=== PATIENT | female | born 2000 | race Caucasian/White ===

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

== ENCOUNTER → 2019-06-19 | Outpatient (CLI) | payer OTHER | END | disposition home or self-care (01) | LOC: LABWHC1 11:13 | PROVIDERS: ATTEND Obstetrics & Gynecology | DX: N92.6 Irregular menstruation, unspecified (principal) | CPT/HCPCS: 36415; 84702 ==

== ENCOUNTER → 2019-06-22 | Outpatient (CLI) | payer OTHER ==
--- NOTE | 2019-06-22 13:53 | US ---
EXAMINATION TYPE: US pelvic complete DATE OF EXAM: 06/22/2019 COMPARISON: US 2016 CLINICAL HISTORY: R10.2 pelvic pain. Intermittent left pelvic pain x 2 to 3 weeks, 1, para 1 TECHNIQUE: . Transabdominal sonographic images of the pelvis were acquired. Date of LMP: 1st week in May EXAM MEASUREMENTS: Uterus: 7.4 x 3.6 x 5.1 cm Endometrial Stripe: 0.3 cm Right Ovary: 2.3 x 1.6 x 1.4 cm Left Ovary: 2.4 x 1.8 x 1.6 cm 1. Uterus: anteverted, heterogeneous 2. Endometrium: appears wnl 3. Right Ovary: wnl 4. Left Ovary: wnl 5. Bilateral Adnexa: wnl 6. Posterior cul-de-sac: small amount of free fluid IMPRESSION: Trace amount of free fluid is likely physiologic in nature. Otherwise unremarkable pelvic ultrasound.
== END | disposition home or self-care (01) ==
LOC: RADUSWWP 12:26
PROVIDERS: ATTEND Obstetrics & Gynecology
DX: R10.2 Pelvic and perineal pain (principal)
CPT/HCPCS: 76856

== ENCOUNTER 2019-09-18 16:06 | Emergency (ER) | payer OTHER ==
[2019-09-18 18:37] LABS: Appearance,Urine Cloudy (Clear); Bilirubin,Urine Negative (Negative); Blood,Urine Negative (Negative); Color,Urine Yellow; Glucose,Urine (UA) Negative (Negative); Ketones,Urine Negative (Negative); Leukocyte Esterase,Urine Trace (Negative); Mucus,Urine Many /hpf; Nitrite,Urine Negative (Negative); PH, Urine 5.5 (5.0-8.0); Protein,Urine Negative (Negative); RBC,Urine 1 /hpf (0-5); Specific Gravity,Urine 1.022 (1.001-1.035); Squamous Epithelial Cell,Urine 10 /hpf (0-4); Urobilinogen,Urine <2.0 mg/dL (<2.0); WBC,Urine 5 /hpf (0-5)
--- NOTE | 2019-09-18 19:43 | US ---
EXAMINATION TYPE: Transabdominal DATE OF EXAM: 09/18/2019 7:25 PM COMPARISON: US CLINICAL HISTORY: pain. Pelvic pain x 2 weeks. . EXAM PERFORMED: Transvaginal (TV) and Transabdominal (TA) EXAM MEASUREMENTS: GESTATIONAL AGE / DATING Physician Established: Not yet established. Dates by LMP: (4 weeks/6 days) EDC: 05/21/2020 Dates by First Scan: This is first scan. Dates by Current Scan for: Possible gestational sac measures out of range. MATERNAL ANATOMY Uterus: 7.4 x 5.6 x 4.7 cm. Anteverted. Appears slightly heterogeneous. Anechoic fluid-appearing area slightly right in endometrium: 1.4 x 0.6 x 0.1 cm. Prominent vessels left adnexa measuring 0.72 cm. Right Ovary: 2.5 x 1.7 x 1.8 cm. Appears wnl. Left Ovary: 3.1 x 2.0 x 1.5 cm. Area of mixed echogenicity and peripheral vascularity seen: 1.4 x 1.6 x 1.1 cm. Post CDS / Adnexa: Fluid seen in CDS. Presence of free fluid: Yes in CDS. Presence of corpus luteal cyst: Area of mixed echogenicity and peripheral vascularity seen left ovary : 1.4 x 1.6 x 1.1 cm. Presence of subchorionic bleed: Not seen. GESTATION / SURVEY MSD: 0.27 cm. Measures OOR. IUP: Possible gestational sac only seen at this time. Date of LMP: 08/15/2019 Beta HcG (if available): Detected IMPRESSION: Possible small intrauterine gestational sac. Follow-up exam recommended in 14 days to confirm a livin g fetus of clinically indicated. No adnexal mass.
--- NOTE | 2019-09-18 19:50 | ED ---
Abdominal Pain HPI - General Chief Complaint: Abdominal Pain Stated Complaint: /cramping Time Seen by Provider: 09/18/19 18:24 Source: patient, RN notes reviewed Mode of arrival: ambulatory Limitations: no limitations - History of Present Illness Initial Comments: This a 19-year-old female presents emergency Department chief complaint of abdominal pain and early . Patient states she is A0 scheduled to see Dr. Lambert. Patient states that she had a vaginal delivery 14 months ago. Patient denies any current vaginal bleeding vaginal discharge. She states that she's had pain like this in the past with her other but states it seemed to worsen today. Patient has fever, chills, dysuria. She has some slight nausea no vomiting no diarrhea no constipation. - Related Data Home Medications Medication Instructions Recorded Confirmed Albuterol Sulfate [Proair Hfa] 2 puff INHALATION RT-Q6H PRN 01/18/18 07/10/18 Pnv No.95/Ferrous Fum/Folic AC 1 tab PO ONCE 04/20/18 07/10/18 [ Multivitamin Tablet] Previous Rx's Medication Instructions Recorded Ibuprofen [Motrin] 600 mg PO Q6HR PRN #30 tab 07/13/18 Allergies Allergy/AdvReac Type Severity Reaction Status Date / Time No Known Allergies Allergy Verified 07/10/18 16:18 Review of Systems ROS Statement: Those systems with pertinent positive or pertinent negative responses have been documented in the HPI. ROS Other: All systems not noted in ROS Statement are negative. Past Medical History Past Medical History: Asthma Additional Past Medical History / Comment(s): season allergies. OB history: This is her first . O+, abs neg, Rub Imm, Hep B neg, RPR NR, HIV NR, GBS neg. History of Any Multi-Drug Resistant Organisms: None Reported Past Surgical History: No Surgical Hx Reported Additional Past Surgical History / Comment(s): tongue clipped Past Anesthesia/Blood Transfusion Reactions: No Reported Reaction Past Psychological History: ADD/ADHD, Anxiety, Bipolar, Depression Smoking Status: Current every day smoker Past Alcohol Use History: None Reported Past Drug Use History: None Reported - Past Family History Mother Family Medical History: No Reported History General Exam Limitations: no limitations General appearance: alert, in no apparent distress Head exam: Present: atraumatic, normocephalic, normal inspection Neck exam: Present: normal inspection. Absent: tenderness, meningismus, lymphadenopathy Respiratory exam: Present: normal lung sounds bilaterally. Absent: respiratory distress, wheezes, rales, rhonchi, stridor Cardiovascular Exam: Present: regular rate, normal rhythm, normal heart sounds. Absent: systolic murmur, diastolic murmur, rubs, gallop, clicks GI/Abdominal exam: Present: soft, tenderness ( minimal left-sided), normal bowel sounds. Absent: distended, guarding, rebound, rigid Back exam: Absent: CVA tenderness (R), CVA tenderness (L) Course Vital Signs 09/18/19 09/18/19 16:20 18:24 Temperature 98.6 F Pulse Rate 90 Respiratory 16 20 Rate Blood Pressure 126/66 O2 Sat by Pulse 100 Oximetry Medical Decision Making - Medical Decision Making Ultrasound shows gestational sac, consistent left. Otherwise no acute abnormality's. Patient hCG is 733 correlates for early . Patient will be discharged in stable condition return parameters were discussed. - Lab Data Lab Results 09/18/19 09/18/19 09/18/19 Range/Units 18:28 18:28 18:48 HCG, Quant 733.2 mIU/mL Urine Color Yellow Urine Appearance Cloudy H (Clear) Urine pH 5.5 (5.0-8.0) Ur Specific [place] 1.022 (1.001-1.035) Urine Protein Negative (Negative) Urine Glucose (UA) Negative (Negative) Urine Ketones Negative (Negative) Urine Blood Negative (Negative) Urine Nitrite Negative (Negative) Urine Bilirubin Negative (Negative) Urine Urobilinogen <2.0 (<2.0) mg/dL Ur Leukocyte Esterase Trace H (Negative) Urine RBC 1 (0-5) /hpf Urine WBC 5 (0-5) /hpf Ur Squamous Epith Cells 10 H (0-4) /hpf Urine Mucus Many H (None) /hpf Urine HCG, Qual Detected (Not Detectd) Disposition Clinical Impression: Abdominal pain during Disposition: HOME SELF-CARE Condition: Stable Instructions (If sedation given, give patient instructions): Abdominal Pain in (ED) Additional Instructions: Please return to the Emergency Department if symptoms worsen or any other concerns. Is patient prescribed a controlled substance at d/c from ED?: No Referrals: None,Stated [Primary Care Provider] - 1-2 days Time of Disposition: 19:55
[2019-09-18 20:15] VITALS: BP 137/72; PULSE 88; RESP 18; TEMP 97.3
== END 2019-09-18 20:15 | disposition home or self-care (01) ==
LOC: EC 16:06
DX: O99.89 Other specified diseases and conditions complicating pregnancy, childbirth and the puerperium (principal); R10.2 Pelvic and perineal pain; R11.0 Nausea; O99.511 Diseases of the respiratory system complicating pregnancy, first trimester; J45.909 Unspecified asthma, uncomplicated; O99.331 Smoking (tobacco) complicating pregnancy, first trimester; F17.200 Nicotine dependence, unspecified, uncomplicated; Z79.899 Other long term (current) drug therapy; Z3A.01 Less than 8 weeks gestation of pregnancy
CPT/HCPCS: 36415; 76801; 76817; 81001; 81025; 84702; 99284

== ENCOUNTER 2019-10-30 17:19 | Emergency (ER) | payer OTHER ==
[2019-10-30 17:28] VITALS: RESP 18; TEMP 98.7
[2019-10-30 18:26] LABS: Basophils % (A) 0 %; Eosinophils # (A) 0.2 k/uL (0-0.7); Eosinophils % (A) 2 %; HCT 37.6 % (34.0-46.0); HGB 13.1 gm/dL (11.4-16.0); Lymphocytes % (A) 12 %; MCH 31.2 pg (25.0-35.0); MCHC 34.8 g/dL (31.0-37.0); MCV 89.7 fL (80.0-100.0); Mean Platelet Volume 7.2; Monocytes # (A) 0.2 k/uL (0-1.0); Monocytes % (A) 2 %; Neutrophils # (A) 7.4 k/uL (1.3-7.7); Neutrophils % (A) 83 %; Platelet Count 252 k/uL (150-450); RDW 12.4 % (11.5-15.5); WBC 8.9 k/uL (4.0-11.0)
[2019-10-30 18:33] LABS: Amorphous Sediment,Urine Rare /hpf; Appearance,Urine Turbid (Clear); Bacteria,Urine Few /hpf; Bilirubin,Urine Negative (Negative); Blood,Urine Negative (Negative); Color,Urine Yellow; Glucose,Urine (UA) Negative (Negative); Ketones,Urine Trace (Negative); Leukocyte Esterase,Urine Large (Negative); Mucus,Urine Many /hpf; Nitrite,Urine Negative (Negative); PH, Urine 6.5 (5.0-8.0); Protein,Urine 1+ (Negative); RBC,Urine 27 /hpf (0-5); Specific Gravity,Urine 1.027 (1.001-1.035); Squamous Epithelial Cell,Urine 67 /hpf (0-4); WBC,Urine 135 /hpf (0-5)
[2019-10-30 18:39] VITALS: BP 104/59; PULSE 76
[2019-10-30 19:05] LABS: ALT 10 U/L (4-34); AST 21 U/L (14-36); African American GFR (CKD) >90 (>60 ml/min/1.73 sqM); Albumin 4.4 g/dL (3.5-5.0); Alkaline Phosphatase 43 U/L (38-126); Anion Gap 8 mmol/L; Blood Urea Nitrogen 9 mg/dL (7-17); Calcium 9.3 mg/dL (8.4-10.2); Carbon Dioxide 21 mmol/L (22-30); Chloride 107 mmol/L (98-107); Glucose 107 mg/dL (74-99); Non-African American GFR(CKD) >90 (>60 ml/min/1.73 sqM); Potassium 3.5 mmol/L (3.5-5.1); Sodium 136 mmol/L (137-145); Total Bilirubin 0.8 mg/dL (0.2-1.3); Total Protein 6.9 g/dL (6.3-8.2)
--- NOTE | 2019-10-30 19:16 | ED ---
Abdominal Pain HPI - General Chief Complaint: Abdominal Pain Stated Complaint: 10-12 wks preg/cramping & blood in urine Time Seen by Provider: 10/30/19 17:30 Source: patient Mode of arrival: ambulatory Limitations: no limitations - History of Present Illness Initial Comments: Patient is a 19-year-old female presenting to the emergency Department with co mplaints of abdominal cramping and bleeding for 2 days. Patient is currently 10 weeks . . Patient's [employer] is Dr. Lambert. She has not yet seen Dr. Lambert. She states that she is been having cramping throughout this entire part C but the last 2 days it has been much worse. She states that she did fall 2 days ago after slipping on some ice and landed mostly on her hip area. She b elieves her symptoms started shortly after this. She denies any fever, chills, cough. She denies any nausea or vomiting. She denies any vaginal discharge. She has no other complaints at this time. Upon arrival to ER, her vital signs are stable. - Related Data Home Medications Medication Instructions Recorded Confirmed Albuterol Sulfate [Proair Hfa] 2 puff INHALATION RT-Q6H PRN 01/18/18 07/10/18 Pnv No.95/Ferrous Fum/Folic AC 1 tab PO ONCE 04/20/18 07/10/18 [ Multivitamin Tablet] Previous Rx's Medication Instructions Recorded Ibuprofen [Motrin] 600 mg PO Q6HR PRN #30 tab 07/13/18 Pnv No.95/Ferrous Fum/Folic AC 1 each PO DAILY #30 tablet 09/18/19 [ Multivitamin Tablet] Cephalexin [Keflex] 500 mg PO BID 5 Days #10 cap 10/30/19 Allergies Allergy/AdvReac Type Severity Reaction Status Date / Time No Known Allergies Allergy Verified 10/30/19 17:28 Review of Systems ROS Statement: Those systems with pertinent positive or pertinent negative responses have been documented in the HPI. ROS Other: All systems not noted in ROS Statement are negative. Past Medical History Past Medical History: Asthma Additional Past Medical History / Comment(s): season allergies. OB history: This is her first . O+, abs neg, Rub Imm, Hep B neg, RPR NR, HIV NR, GBS neg. History of Any Multi-Drug Resistant Organisms: None Reported Past Surgical History: No Surgical Hx Reported Additional Past Surgical History / Comment(s): tongue clipped Past Anesthesia/Blood Transfusion Reactions: No Reported Reaction Past Psychological History: ADD/ADHD, Anxiety, Bipolar, Depression Smoking Status: Current every day smoker Past Alcohol Use History: None Reported Past Drug Use History: None Reported - Past Family History Mother Family Medical History: No Reported History General Exam - General Exam Comments Initial Comments: GENERAL: Well-appearing, well-nourished and in no acute distress. HEAD: Atraumatic, normocephalic. EYES: Pupils equal round and reactive to light, extraocular movements intact, sclera anicteric, conjunctiva are normal. ENT: TMs normal, nares patent, oropharynx clear without exudates. Moist mucous membranes. NECK: Normal range of motion, supple without lymphadenopathy or JVD. LUNGS: Breath sounds clear to auscultation bilaterally and equal. No wheezes rales or rhonchi. HEART: Regular rate and rhythm without murmurs, rubs or gallops. ABDOMEN: Soft, nontender, normoactive bowel sounds. No guarding, no rebound. No masses appreciated. EXTREMITIES: Normal range of motion, no pitting or edema. No clubbing or cyanosis. NEUROLOGICAL: Normal speech, normal gait. PSYCH: Normal mood, normal affect. SKIN: Warm, Dry, normal turgor, no rashes or lesions noted. Limitations: no limitations External exam: Present: normal external exam Speculum exam: Present: vaginal discharge. Absent: vaginal bleeding, foreign body By manual exam: Present: normal by manual exam Course Vital Signs 10/30/19 10/30/19 17:25 18:38 Temperature 98.7 F Pulse Rate 94 76 Respiratory 18 18 Rate Blood Pressure 103/65 104/59 O2 Sat by Pulse 100 Oximetry Medical Decision Making - Medical Decision Making Patient is 19-year-old female presenting with abdominal cramping, bleeding 2 days. 10 weeks . G2, P1. Dr. Lambert's [employer]. Vitals are stable. Pelvic exam shows no acute abnormalities, very mild vaginal discharge. Lab work is unremarkable. HCG [place] is 151,000. Urine is contaminated but does show some bacteria. Trichomonas is negative. Vaginal culture and gonorrhea and chlamydia are pending at this time. Blood type is O+. Ultrasound reveals a viable IUP approximately 10 weeks. Small subchorionic hemorrhage. No other abnormal findings. I discussed with patient that she'll be treated for UTI. She will also follow up with [employer]. Patient given first dose of Keflex here. She is in agreement with this plan of care. Return parameters were discussed with the patient and she verbalized understanding. - Lab Data Result diagrams: 10/30/19 18:13 10/30/19 18:13 Lab Results 10/30/19 10/30/19 10/30/19 Range/Units 18:13 18:13 18:13 WBC 8.9 (4.0-11.0) k/uL RBC 4.20 (3.80-5.40) m/uL Hgb 13.1 (11.4-16.0) gm/dL Hct 37.6 (34.0-46.0) % MCV 89.7 (80.0-100.0) fL MCH 31.2 (25.0-35.0) pg MCHC 34.8 (31.0-37.0) g/dL RDW 12.4 (11.5-15.5) % Plt Count 252 (150-450) k/uL Neutrophils % 83 % Lymphocytes % 12 % Monocytes % 2 % Eosinophils % 2 % Basophils % 0 % Neutrophils # 7.4 (1.3-7.7) k/uL Lymphocytes # 1.0 (1.0-4.8) k/uL Monocytes # 0.2 (0-1.0) k/uL Eosinophils # 0.2 (0-0.7) k/uL Basophils # 0.0 (0-0.2) k/uL Sodium 136 L (137-145) mmol/L Potassium 3.5 (3.5-5.1) mmol/L Chloride 107 (98-107) mmol/L Carbon Dioxide 21 L (22-30) mmol/L Anion Gap 8 mmol/L BUN 9 (7-17) mg/dL Creatinine 0.46 L (0.52-1.04) mg/dL Est GFR (CKD-EPI)AfAm >90 (>60 ml/min/1.73 sqM) Est GFR (CKD-EPI)NonAf >90 (>60 ml/min/1.73 sqM) Glucose 107 H (74-99) mg/dL Calcium 9.3 (8.4-10.2) mg/dL Total Bilirubin 0.8 (0.2-1.3) mg/dL AST 21 (14-36) U/L ALT 10 (4-34) U/L Alkaline Phosphatase 43 (38-126) U/L Total Protein 6.9 (6.3-8.2) g/dL Albumin 4.4 (3.5-5.0) g/dL HCG, Quant 102361.0 mIU/mL Urine Color Yellow Urine Appearance Turbid H (Clear) Urine pH 6.5 (5.0-8.0) Ur Specific [place] 1.027 (1.001-1.035) Urine Protein 1+ H (Negative) Urine Glucose (UA) Negative (Negative) Urine Ketones Trace H (Negative) Urine Blood Negative (Negative) Urine Nitrite Negative (Negative) Urine Bilirubin Negative (Negative) Urine Urobilinogen 2.0 (<2.0) mg/dL Ur Leukocyte Esterase Large H (Negative) Urine RBC 27 H (0-5) /hpf Urine WBC 135 H (0-5) /hpf Ur Squamous Epith Cells 67 H (0-4) /hpf Amorphous Sediment Rare H (None) /hpf Urine Bacteria Few H (None) /hpf Urine Mucus Many H (None) /hpf Trichomonas Ag (Rapid) (Negative) Blood Type Blood Type Recheck Bld Type Recheck Status 10/30/19 10/30/19 Range/Units 18:13 18:13 WBC (4.0-11.0) k/uL RBC (3.80-5.40) m/uL Hgb (11.4-16.0) gm/dL Hct (34.0-46.0) % MCV (80.0-100.0) fL MCH (25.0-35.0) pg MCHC (31.0-37.0) g/dL RDW (11.5-15.5) % Plt Count (150-450) k/uL Neutrophils % % Lymphocytes % % Monocytes % % Eosinophils % % Basophils % % Neutrophils # (1.3-7.7) k/uL Lymphocytes # (1.0-4.8) k/uL Monocytes # (0-1.0) k/uL Eosinophils # (0-0.7) k/uL Basophils # (0-0.2) k/uL Sodium (137-145) mmol/L Potassium (3.5-5.1) mmol/L Chloride (98-107) mmol/L Carbon Dioxide (22-30) mmol/L Anion Gap mmol/L BUN (7-17) mg/dL Creatinine (0.52-1.04) mg/dL Est GFR (CKD-EPI)AfAm (>60 ml/min/1.73 sqM) Est GFR (CKD-EPI)NonAf (>60 ml/min/1.73 sqM) Glucose (74-99) mg/dL Calcium (8.4-10.2) mg/dL Total Bilirubin (0.2-1.3) mg/dL AST (14-36) U/L ALT (4-34) U/L Alkaline Phosphatase (38-126) U/L Total Protein (6.3-8.2) g/dL Albumin (3.5-5.0) g/dL HCG, Quant mIU/mL Urine Color Urine Appearance (Clear) Urine pH (5.0-8.0) Ur Specific [place] (1.001-1.035) Urine Protein (Negative) Urine Glucose (UA) (Negative) Urine Ketones (Negative) Urine Blood (Negative) Urine Nitrite (Negative) Urine Bilirubin (Negative) Urine Urobilinogen (<2.0) mg/dL Ur Leukocyte Esterase (Negative) Urine RBC (0-5) /hpf Urine WBC (0-5) /hpf Ur Squamous Epith Cells (0-4) /hpf Amorphous Sediment (None) /hpf Urine Bacteria (None) /hpf Urine Mucus (None) /hpf Trichomonas Ag (Rapid) Negative (Negative) Blood Type O Positive Blood Type Recheck O Pos Bld Type Recheck Status No Disposition Clinical Impression: UTI (urinary tract infection) during , Abdominal cramping Disposition: HOME SELF-CARE Condition: Stable Instructions (If sedation given, give patient instructions): Urinary Tract Infection in (ED) Additional Instructions: Please return to the Emergency Department if symptoms worsen or any other concerns. May take Tylenol as needed for pain. Take antibiotics as prescribed. Follow-up with [employer] as discussed. Prescriptions: Cephalexin [Keflex] 500 mg PO BID 5 Days #10 cap Is patient prescribed a controlled substance at d/c from ED?: No Referrals: None,Stated [Primary Care Provider] - 1-2 days
--- NOTE | 2019-10-30 19:41 | US ---
EXAMINATION TYPE: Transabdominal DATE OF EXAM: 10/30/2019 7:20 PM COMPARISON: US dated 09/18/2019 CLINICAL HISTORY: pain, bleeding. Pain, bleeding x 2 days. Hx ovarian cyst. . EXAM PERFORMED: Transabdominal (TA) EXAM MEASUREMENTS: GESTATIONAL AGE / DATING Physician Established: Not yet established Dates by LMP: (10 weeks/6 days) EDC: 05/21/2020 Dates by First Scan: No dates for first scan. Dates by Current Scan for: (10 weeks/6 days) EDC: 05/21/2020 MATERNAL ANATOMY Uterus: 10.1 x 6.8 x 6.9 cm. Hypoechoic area seen adjacent to the gestational sac: 2.0 x 1.1 x 0.6 cm (mentioned below). Right Ovary: 1.9 x 1.4 x 1.6 cm. Left Ovary: 2.2 x 1.8 x 1.2 cm. Area of mixed echogenicity and peripheral vascularity seen measurin.5 x 1.2 x 1.2 centimeters similar to prior exam Post CDS / Adnexa: Appear to be wnl Presence of free fluid: None seen. Presence of subchorionic bleed: Hypoechoic area seen adjacent to the gestational sac: 2.0 x 1.1 x 0.6 cm. GESTATION / SURVEY CRL: 3.94 cm. (10 weeks/6 days) Yolk Sac (normal less than 6mm): 5.3 mm. Heart Rate: 162 bpm Rhythm: Normal IUP: Viable IUP Nuchal Translucency 10-14wks (normal less than 3mm): 2.5 mm. Date of LMP: 08/15/2019 Beta HcG (if available): Not available. IMPRESSION: Single viable intrauterine corresponding to ultrasound age of 10 weeks 6 days by today's ex am with an estimated date of delivery May 21, 2020 by today's exam. Small subchorionic hemorrhage is identified.
[2019-10-30] MEDS ORDERED: CEPHALEXIN 500 MG CAP PO STA (19:47)
[2019-10-31 15:13] LABS: C. trachomatis,PCR Negative (Neg,Equiv); Chlamydia trachomatis Source Cervix; N. gonorrhoeae,PCR Negative (Neg,Equiv); Neisseria Source Cervix
== END 2019-10-30 19:54 | disposition home or self-care (01) ==
LOC: EC 17:19
DX: O23.41 Unspecified infection of urinary tract in pregnancy, first trimester (principal); O99.89 Other specified diseases and conditions complicating pregnancy, childbirth and the puerperium; N89.8 Other specified noninflammatory disorders of vagina; R82.71 Bacteriuria; O20.8 Other hemorrhage in early pregnancy; Z67.40 Type O blood, Rh positive; O99.511 Diseases of the respiratory system complicating pregnancy, first trimester; J45.909 Unspecified asthma, uncomplicated; O99.331 Smoking (tobacco) complicating pregnancy, first trimester; F17.200 Nicotine dependence, unspecified, uncomplicated; Z79.899 Other long term (current) drug therapy; Z3A.10 10 weeks gestation of pregnancy; W00.0XXA Fall on same level due to ice and snow, initial encounter
CPT/HCPCS: 36415; 76801; 76813; 80053; 81001; 84702; 85025; 86900; 86901; 87070; 87086; 87491; 87591; 87808; 99284

== ENCOUNTER 2019-12-05 02:47 | Emergency (ER) | payer OTHER ==
[2019-12-05 02:53] VITALS: TEMP 98
[2019-12-05] MEDS ORDERED: SODIUM CHLORIDE 0.9% 500 ML 500 ML IV STA (02:56)
[2019-12-05] MEDS ORDERED: ACETAMINOPHEN TAB 500 MG TAB PO STA (03:12)
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
[2019-12-05 03:32] LABS: Basophils % (A) 0 %; Eosinophils # (A) 0.2 k/uL (0-0.7); Eosinophils % (A) 1 %; HCT 37.9 % (34.0-46.0); HGB 13.3 gm/dL (11.4-16.0); Lymphocytes # (A) 1.1 k/uL (1.0-4.8); Lymphocytes % (A) 6 %; MCH 31.8 pg (25.0-35.0); MCV 91.1 fL (80.0-100.0); Mean Platelet Volume 7.3; Monocytes # (A) 0.4 k/uL (0-1.0); Monocytes % (A) 2 %; Neutrophils # (A) 15.4 k/uL (1.3-7.7); Neutrophils % (A) 90 %; Platelet Count 273 k/uL (150-450); RBC 4.16 m/uL (3.80-5.40); RDW 13.1 % (11.5-15.5); WBC 17.2 k/uL (4.0-11.0)
[2019-12-05 03:42] LABS: ALT 8 U/L (4-34); AST 18 U/L (14-36); African American GFR (CKD) >90 (>60 ml/min/1.73 sqM); Albumin 4.1 g/dL (3.5-5.0); Alkaline Phosphatase 61 U/L (38-126); Amylase 55 U/L (30-110); Anion Gap 8 mmol/L; Blood Urea Nitrogen 5 mg/dL (7-17); Calcium 9.3 mg/dL (8.4-10.2); Carbon Dioxide 21 mmol/L (22-30); Chloride 105 mmol/L (98-107); Glucose 82 mg/dL (74-99); Non-African American GFR(CKD) >90 (>60 ml/min/1.73 sqM); Potassium 3.7 mmol/L (3.5-5.1); Sodium 134 mmol/L (137-145); Total Bilirubin 0.5 mg/dL (0.2-1.3); Total Protein 6.8 g/dL (6.3-8.2)
[2019-12-05 03:48] LABS: INR 0.9 (<1.2); Prothrombin Time 9.9 sec (9.0-12.0)
[2019-12-05 03:54] LABS: Partial Thromboplastin Time 21.1 sec (22.0-30.0)
[2019-12-05 04:07] LABS: Appearance,Urine Cloudy (Clear); Bacteria,Urine Rare /hpf; Bilirubin,Urine Negative (Negative); Blood,Urine Negative (Negative); Color,Urine Yellow; Glucose,Urine (UA) Negative (Negative); Ketones,Urine 1+ (Negative); Leukocyte Esterase,Urine Small (Negative); Mucus,Urine Many /hpf; Nitrite,Urine Negative (Negative); PH, Urine 7.5 (5.0-8.0); Protein,Urine 3+ (Negative); RBC,Urine 2 /hpf (0-5); Specific Gravity,Urine 1.014 (1.001-1.035); Squamous Epithelial Cell,Urine 5 /hpf (0-4); Urobilinogen,Urine <2.0 mg/dL (<2.0); WBC,Urine 25 /hpf (0-5)
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
[2019-12-05 05:04] VITALS: BP 99/62; PULSE 96; RESP 16
== END 2019-12-05 05:16 | disposition home or self-care (01) ==
LOC: EC 02:47
DX: O9A.212 Injury, poisoning and certain other consequences of external causes complicating pregnancy, second trimester (principal); S30.1XXA Contusion of abdominal wall, initial encounter; O99.89 Other specified diseases and conditions complicating pregnancy, childbirth and the puerperium; R82.71 Bacteriuria; O99.512 Diseases of the respiratory system complicating pregnancy, second trimester; J45.909 Unspecified asthma, uncomplicated; O99.332 Smoking (tobacco) complicating pregnancy, second trimester; F17.200 Nicotine dependence, unspecified, uncomplicated; Z3A.16 16 weeks gestation of pregnancy; Y04.8XXA Assault by other bodily force, initial encounter
CPT/HCPCS: 36415; 76700; 76815; 80053; 81001; 82150; 83690; 85025; 85610; 85730; 86900; 86901; 87086; 99284

== ENCOUNTER 2020-02-25 20:10 | Outpatient (CLI) | payer OTHER ==
[2020-02-25 22:57] VITALS: BP 118/56; PULSE 90; RESP 16; TEMP 97.4
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
== END 2020-02-25 21:41 | disposition home or self-care (01) ==
LOC: FBPOP 20:10
PROVIDERS: ATTEND Obstetrics & Gynecology
DX: O99.89 Other specified diseases and conditions complicating pregnancy, childbirth and the puerperium (principal); O9A.212 Injury, poisoning and certain other consequences of external causes complicating pregnancy, second trimester; R52 Pain, unspecified; Z3A.27 27 weeks gestation of pregnancy
CPT/HCPCS: 99213

== ENCOUNTER 2020-04-06 23:43 | Outpatient (CLI) | payer OTHER ==
[2020-04-07 00:08] LABS: Appearance,Urine Cloudy (Clear); Bilirubin,Urine Negative (Negative); Blood,Urine Negative (Negative); Color,Urine Yellow; Glucose,Urine (UA) Trace (Negative); Ketones,Urine Trace (Negative); Leukocyte Esterase,Urine Moderate (Negative); Mucus,Urine Many /hpf; Nitrite,Urine Negative (Negative); Protein,Urine 1+ (Negative); RBC,Urine 2 /hpf (0-5); Specific Gravity,Urine 1.026 (1.001-1.035); Squamous Epithelial Cell,Urine 8 /hpf (0-4); WBC,Urine 22 /hpf (0-5)
[2020-04-07] MEDS: LACTATED RINGERS 1,000 ML IV SCH ×2 (01:40→03:02)
[2020-04-07 02:20] VITALS: RESP 16
[2020-04-07 02:58] VITALS: BP 116/66; PULSE 88; TEMP 97.2
--- NOTE | 2020-04-07 08:00 | P.MSEPDOC ---
Presenting Problems - Arrival Data Date of Arrival on Unit: 04/07/20 Time of Arrival on Unit: 23:43 Mode of Transport: Wheelchair - Complaint OB-Reason for Admission/Chief Complaint: Pain Comment: Pelvic/vaginal pain Medical History - Information : 2 Para: 1 Term: 1 : 0 Abortions: Spontaneous or Elective: 0 Number of Living Children: 1 - Gestational Age Gestational Age by MARIAN (wks/days): 33 Weeks and 5 Days - History Complications: Smoker, Hx. Substance Abuse Comment: marijuana use Review of Systems - Review of Systems Constitutional: No problems Breast: No problems ENT: No problems Cardiovascular: No problems Respiratory: No problems Gastrointestinal: No problems Genitourinary: No problems Musculoskeletal: No problems Neurological: No problems Skin: No problems Vital Signs - Temperature Temperature: 97.2 F Temperature Source: Temporal Artery Scan - Pulse Right Pulse Rate: 88 Pulse Assessment Method: Automatic Cuff - Respirations Respiratory Rate: 16 Oxygen Delivery Method: Room Air O2 Sat by Pulse Oximetry: 100 - Blood Pressure Right Arm Blood Pressure: 116/66 Blood Pressure Mean: 82 Blood Pressure Source: Automatic Cuff Medical Screen Scoring (Pre) - Cervical Exam Dilation: Exam Deferred Effacement: Exam Deferred Membranes: Intact - Uterine Contractions Frequency: > 5 minutes apart = 1 Duration: > 40 seconds = 2 Intensity: N/A - Maternal Vital Signs Maternal Temperature: N/A Maternal Blood Pressure: N/A Signs of Preeclampsia: N/A Maternal Respirations: N/A - Maternal Trauma Maternal Trauma: N/A - Assessment - Baby A Baseline FHR: 125 Heart Rate - NICHD Category: Category I (Normal) = 0 NST: Reactive Position: N/A Station: N/A - Total Score - Baby A Total Score - Baby A: 3 - Total Score - Baby B Total Score - Baby B: 3 - Total Score - Baby C Total Score - Baby C: 3 - Level of Risk - Baby A Level of Risk - Baby A: Low (0-5) - Level of Risk - Baby B Level of Risk - Baby B: Low (0-5) - Level of Risk - Baby C Level of Risk - Baby C: Low (0-5) - Pain Assessment Pain Location and Character: Pelvic Pain Scale Used: Numeric (1 - 10) Pain Intensity: 6 Pain Management Goal: 3 Pain Description: *Acute, Stabbing Pain Frequency: Frequent Pain Aggravating Factors: Activity, Sitting Non-Pharmacological Interventions: Darkened Room, Distraction, Ice Physician Notification (Pre) - Physician Notified Physician Notified Date: 04/07/20 Physician Notified Time: 00:23 New Order Received: Yes - Notification Comment Comment: Perform cervical exam & obtain FFN. If patient is dilated, then send FFN. Order a culture/sensitivity for urine. Medical Screen Scoring (Post) - Cervical Exam Dilation: 1-3 cm = 1 Membranes: Intact - Uterine Contractions Frequency: N/A Duration: N/A Intensity: N/A - Maternal Vital Signs Maternal Temperature: N/A Maternal Blood Pressure: N/A Signs of Preeclampsia: N/A Maternal Respirations: N/A - Pain Assessment Pain Location and Character: Pelvic Pain Scale Used: Numeric (1 - 10) Pain Intensity: 5 Pain Management Goal: 3 Pain Description: *Acute Pain Frequency: Intermittent Non-Pharmacological Interventions: Darkened Room, Distraction, Ice, Inactivity - Maternal Trauma Maternal Trauma: N/A - Assessment - Baby A Heart Rate: 125 Heart Rate - NICHD Category: Category I (Normal) = 0 NST: Reactive Position: N/A Station: N/A - Total Score Total Score - Baby A: 1 Total Score - Baby B: 1 Total Score - Baby C: 1 - Post Treatment Level of Risk Post Treatment Level of Risk - Baby A: Low (0-5) Post Treatment Level of Risk - Baby B: Low (0-5) Post Treatment Level of Risk - Baby C: Low (0-5) Physician Notification (Post) - Physician Notified Physician Notified Date: 04/07/20 Physician Notified Time: 06:08 Physician/Practitioner Notified:: Dr Hall New Order Received: Yes - Notification Comment Comment: Administer 500cc bolus, keep pt in triage until Dr. Hall evaluates in AM when he comes in, if FFN is positive administer celestone injection. Disposition - Disposition OB Disposition: Discharge to home Discharge Date: 04/07/20 Discharge Time: 06:20 I agree with the RN Medical Screening Exam: Yes Risk & Benefit of care provided described in d/c instruction: Yes Diagnosis: FALSE LABOR BEFORE 37 COMPLETED WEEKS OF GEST, THIRD TRI (Cx is 1 and thick. No regular ctx. FFN negative. No evidence of PTL. Will f/u UA and office this week. )
== END 2020-04-07 06:20 | disposition home or self-care (01) ==
LOC: FBPOP 23:43
PROVIDERS: ATTEND Obstetrics & Gynecology
DX: O47.03 False labor before 37 completed weeks of gestation, third trimester (principal); Z3A.33 33 weeks gestation of pregnancy
CPT/HCPCS: 59025; 96360; 96367; 82731; 81001; 87086; G0463; 99213

== ENCOUNTER 2020-04-09 16:49 | Outpatient (CLI) | payer OTHER ==
[2020-04-09 19:04] VITALS: BP 99/54; PULSE 104; RESP 16; TEMP 98.6
--- NOTE | 2020-04-09 20:45 | P.MSEPDOC ---
Presenting Problems - Arrival Data Date of Arrival on Unit: 04/09/20 Time of Arrival on Unit: 16:50 Mode of Transport: Ambulatory - Complaint OB-Reason for Admission/Chief Complaint: Other Comment: pt arrived c/o loosing her mucus plug and mild cramping and not sure if her water broke Medical History - Information : 2 Para: 1 Term: 1 : 0 Abortions: Spontaneous or Elective: 0 Number of Living Children: 1 - Gestational Age Gestational Age by MARIAN (wks/days): 34 Weeks and 0 Days Review of Systems - Review of Systems Constitutional: No problems Breast: No problems ENT: No problems Cardiovascular: No problems Respiratory: No problems Gastrointestinal: No problems Genitourinary: No problems Musculoskeletal: No problems Neurological: No problems Skin: No problems Vital Signs - Temperature Temperature: 98.6 F Temperature Source: Oral - Pulse Right Brachial Pulse Rate: 104 Pulse Assessment Method: Automatic Cuff - Respirations Respiratory Rate: 16 Oxygen Delivery Method: Room Air O2 Sat by Pulse Oximetry: 100 - Blood Pressure Right Arm Blood Pressure: 99/54 Blood Pressure Mean: 69 Blood Pressure Source: Automatic Cuff Medical Screen Scoring (Pre) - Cervical Exam Dilation: 1-3 cm = 1 Membranes: Intact - Uterine Contractions Frequency: > 5 minutes apart = 1 Duration: N/A Intensity: N/A - Maternal Vital Signs Maternal Temperature: N/A Maternal Blood Pressure: N/A Signs of Preeclampsia: N/A Maternal Respirations: N/A - Maternal Trauma Maternal Trauma: N/A - Assessment - Baby A Baseline FHR: 140 Heart Rate - NICHD Category: Category I (Normal) = 0 NST: Reactive Position: N/A Station: N/A - Total Score - Baby A Total Score - Baby A: 2 - Total Score - Baby B Total Score - Baby B: 2 - Total Score - Baby C Total Score - Baby C: 2 - Level of Risk - Baby A Level of Risk - Baby A: Low (0-5) - Level of Risk - Baby B Level of Risk - Baby B: Low (0-5) - Level of Risk - Baby C Level of Risk - Baby C: Low (0-5) Physician Notification (Pre) - Physician Notified Physician Notified Date: 04/09/20 Physician Notified Time: 18:50 New Order Received: Yes - Notification Comment Comment: negative amnsiure ervix 1 cm and thick reactive nst. may discharge to home with instructions Disposition - Disposition OB Disposition: Discharge to home Discharge Date: 04/09/20 Discharge Time: 18:51 I agree with the RN Medical Screening Exam: Yes Risk & Benefit of care provided described in d/c instruction: Yes Diagnosis: FALSE LABOR BEFORE 37 COMPLETED WEEKS OF GEST, THIRD TRI
== END 2020-04-09 18:51 | disposition home or self-care (01) ==
LOC: FBPOP 16:49
PROVIDERS: ATTEND Obstetrics & Gynecology
DX: O47.03 False labor before 37 completed weeks of gestation, third trimester (principal); Z3A.34 34 weeks gestation of pregnancy
CPT/HCPCS: 59025; G0463; 99213

== ENCOUNTER 2020-04-17 08:10 | Inpatient (IN) | payer OTHER ==
[2020-04-17] MEDS: LACTATED RINGERS 1,000 ML IV SCH ×2 (08:47→18:21)
[2020-04-17] MEDS ORDERED: BETAMET ACET-BETAMETH SOD PHOS 6 MG/ML MDV IM SCH ×2 (10:00→22:15)
--- NOTE | 2020-04-17 10:25 | US ---
EXAMINATION TYPE: US OB >= 14 wk fetus DATE OF EXAM: 04/17/2020 COMPARISON: CLINICAL HISTORY: rule out abruptionSpotting TECHNIQUE: Transabdominal (TA) GESTATIONAL AGE / DATING Physician Established: (35 weeks/1 days) EDC: 05/21/20 Dates by Current Scan: (33 weeks/3 days) EDC: 06/02/20 Beta HCG (if available): Not available at this time SURVEY IUP: Single PLACENTA: Anterior PREVIA: No Previa EDGARDO: 24.9 cm Polyhydramnios CERVICAL LENGTH (transabdominal: norm > 3.0cm): 4.0 cm BIOMETRY PRESENTATION: Vertex BPD: 8.3 cm 33 weeks / 2 days HC: 30.4 cm 33 weeks / 6 days AC: 30.0 cm 34 weeks / 0 days FL: 6.2 cm 32 weeks / 1 days ESTIMATED WEIGHT IN GRAMS: 2171 grams ESTIMATED WEIGHT IN LBS/OZ: 4 lbs. 13 oz. WEIGHT PERCENTAGE BASED ON ESTABLISHED DATES: 9% HC/AC: 1.0 Normal FL/AC: 75% Normal HEART RATE: 129 bpm RHYTHM: Normal Internal echoes seen within amniotic fluid. IMPRESSION: Single viable intrauterine .
[2020-04-17 13:59] LABS: Basophils % (A) 0 %; Eosinophils # (A) 0.2 k/uL (0-0.7); Eosinophils % (A) 2 %; HCT 37.5 % (34.0-46.0); HGB 12.4 gm/dL (11.4-16.0); Lymphocytes # (A) 1.5 k/uL (1.0-4.8); Lymphocytes % (A) 14 %; MCH 31.2 pg (25.0-35.0); MCHC 33.1 g/dL (31.0-37.0); MCV 94.5 fL (80.0-100.0); Mean Platelet Volume 9.9; Monocytes # (A) 0.7 k/uL (0-1.0); Monocytes % (A) 6 %; Neutrophils # (A) 8.9 k/uL (1.3-7.7); Neutrophils % (A) 78 %; Platelet Count 185 k/uL (150-450); RBC 3.96 m/uL (3.80-5.40); RDW 13.7 % (11.5-15.5); WBC 11.4 k/uL (4.0-11.0)
--- NOTE | 2020-04-17 17:03 | P.HPOB ---
History of Present Illness H&P Date: 04/17/20 Chief Complaint: Vaginal bleeding 19-year-old she the to P1 presents at 35 weeks and 1 day complaining of active bleeding. This morning she thought her water broke because there was wetness on her underwear and she was jerking fluid into the toilet. When she looked down she realized it was blood. When she presented to the hospital she was having some cramping on the monitor and feeling some pain on the left side. She did have some blood on her pad and her cervix was dilated 2 cm, 60% effaced, and -2 station. heart tones 135 with moderate variability and reactive. She was given IV fluids her pain resolved. Her bleeding has slowed. Ultrasound showed vertex infant in the 9th percentile with normal EDGARDO. There was nothing seen on her placenta but there were internal echoes and the fluid. This case was discussed with Dr. Katie Lopez, maternal- medicine at [facility] in [place]. He advised that she should at least stay for 24 hours and get steroids for the risk of delivery. If her pain increases or the bleeding increases or there is any signs of compromise she should be moved towards delivery. Review of Systems All systems: negative Constitutional: Denies chills, Denies fever Eyes: denies blurred vision, denies pain Ears, nose, mouth and throat: Denies headache, Denies sore throat Cardiovascular: Denies chest pain, Denies shortness of breath Respiratory: Denies cough Gastrointestinal: Denies abdominal pain, Denies diarrhea, Denies nausea, Denies vomiting Genitourinary: Denies dysuria, Denies hematuria Musculoskeletal: Denies myalgias Integumentary: Denies pruritus, Denies rash Neurological: Denies numbness, Denies weakness Psychiatric: Denies anxiety, Denies depression Endocrine: Denies fatigue, Denies weight change Past Medical History Past Medical History: Asthma Additional Past Medical History / Comment(s): season allergies. OB history: First was a vaginal delivery. This is her second . O+, abs neg, Rub Imm, Hep B neg, RPR NR, HIV NR, GBS neg. History of Any Multi-Drug Resistant Organisms: None Reported Past Surgical History: No Surgical Hx Reported Additional Past Surgical History / Comment(s): tongue clipped Past Anesthesia/Blood Transfusion Reactions: No Reported Reaction Past Psychological History: ADD/ADHD, Anxiety, Bipolar, Depression Smoking Status: Current every day smoker Past Alcohol Use History: None Reported Past Drug Use History: None Reported - Past Family History Mother Family Medical History: No Reported History Medications and Allergies Home Medications Medication Instructions Recorded Confirmed Type No Known Home Medications 04/17/20 04/17/20 History Allergies Allergy/AdvReac Type Severity Reaction Status Date / Time No Known Allergies Allergy Verified 04/17/20 08:23 Exam Osteopathic Statement: *. No significant issues noted on an osteopathic stru ctural exam other than those noted in the History and Physical/Consult. Vital Signs Temp Pulse Resp BP Pulse Ox 04/17/20 14:58 96.7 F L 82 18 115/69 97 04/17/20 09:23 96.7 F L 82 18 115/69 97 Intake and Output 04/17/20 04/17/20 04/17/20 06:59 14:59 22:59 Intake Total 1000 Balance 1000 Intake: IV 1000 Other: # Voids 3 Weight 58.513 kg Heart: Regular rate and rhythm Lungs: Clear to auscultation bilaterally Abdomen: Soft, nontender even over the area that she said had been in pain which was the left lower quadrant. Extremities: Negative Homans sign Results Result Diagrams: 04/17/20 08:45 Abnormal Lab Results - Last 24 Hours (Table) 04/17/20 Range/Units 08:45 WBC 11.4 H (4.0-11.0) k/uL Neutrophils # 8.9 H (1.3-7.7) k/uL Assessment and Plan (1) Vaginal bleeding during , antepartum Narrative/Plan: Suspect possible abruption. Current Visit: Yes Status: Acute Code(s): O46.90 - ANTEPARTUM HEMORRHAGE, UNSPECIFIED, UNSPECIFIED TRIMESTER SNOMED Code(s): 69407919 Plan: 1. Continuous monitoring 2. IV fluids 3. Celestone 4. Monitor for any signs of abruption and move towards delivery if this happens.
[2020-04-17] MEDS ORDERED: ACETAMINOPHEN TAB 325 MG TAB PO STA (20:00)
[2020-04-17] MEDS ORDERED: ZOLPIDEM 5 MG TAB PO PRN (22:19)
[2020-04-18] MEDS ORDERED: OXYTOCIN 10 UNIT/ML 1 ML VIAL IM PRN (05:58)
[2020-04-18] MEDS ORDERED: LACTATED RINGERS 1,000 ML IV SCH (05:58)
[2020-04-18] MEDS ORDERED: TERBUTALINE 1 MG/ML VIAL SQ PRN (05:58)
[2020-04-18] MEDS ORDERED: METHYLERGONOVINE 0.2 MG/ML 1 ML AMP IM PRN (05:58)
[2020-04-18] MEDS ORDERED: CARBOPROST TROMETHAMINE 250 MCG/ML 1 ML AMP IM PRN (05:58)
[2020-04-18] MEDS ORDERED: LIDOCAINE 0.5% (PF) 5 MG/ML (50 ML SDV) SQ PRN (05:58)
[2020-04-18] MEDS ORDERED: AMPICILLIN 2,000 MG in SODIUM CHLORIDE 0.9% 100 ML IVPB STA (05:58)
[2020-04-18] MEDS ORDERED: OXYTOCIN 30 UNITS/500 ML NS 30 UNIT in SALINE 1 500ML.BAG IV SCH (05:58)
[2020-04-18] MEDS: LACTATED RINGERS 1,000 ML IV SCH ×4 (06:14→20:18)
--- NOTE | 2020-04-18 08:06 | US ---
EXAMINATION TYPE: US OB limited DATE OF EXAM: 04/18/2020 COMPARISON: 04/17/2020 CLINICAL HISTORY: vaginal bleeding. EXAM PERFORMED: Transabdominal (TA) GESTATIONAL AGE / DATING Physician Established: (35 weeks/2 days) EDC: 05/21/2020 No growth performed on today?s study per ordering physician SURVEY PLACENTA: Anterior PREVIA: No Previa Ultrasound evidence of abruption?- No EDGARDO: 20.6 cm Polyhydraminos Ultrasound evidence of premature rupture of membranes? no CERVICAL LENGTH (transabdominal: norm > 3.0cm): 3.6 cm PRESENTATION: Vertex HEART RATE: 138 bpm RHYTHM: Normal Internal echoes visualized within amniotic fluid. IMPRESSION: Limited survey. Single viable intrauterine with normal amniotic fluid in dex.
--- NOTE | 2020-04-18 08:22 | P.PN ---
Progress Note - Text Progress Note Date: 04/18/20 19-year-old 35 weeks and 2 days. She presented with vaginal bleeding yesterday and pain. There were internal echoes in the amniotic fluid on ultrasound yesterday. The case was discussed with MFM who recommended to move towards delivery there was any signs of compromise or increased abruption. She's had had increased pain last night and a bit more bleeding. The baby does have moderate variability but there are occasional variables on the heart rate monitor. The plate this is an indication to move towards delivery. This was discussed with the patient and all questions were answered. Pitocin and amniotomy will be performed to induce labor.
[2020-04-18] MEDS ORDERED: BUTORPHANOL 1 MG/ML 1 ML VIAL IV PRN (09:58)
[2020-04-18] MEDS ORDERED: AMPICILLIN 1,000 MG in SODIUM CHLORIDE 0.9% 50 ML IVPB SCH (09:58)
[2020-04-18] MEDS ORDERED: BETAMET ACET-BETAMETH SOD PHOS 6 MG/ML MDV IM SCH (10:00)
[2020-04-18] MEDS ORDERED: fentaNYL (PF) 50 MCG/ML 2 ML AMP ONE (12:21)
[2020-04-18] MEDS ORDERED: ONDANSETRON 4 MG/2 ML VIAL ONE (12:21)
[2020-04-18] MEDS ORDERED: MORPHINE SULFATE (PF) 0.3 MG/0.3 ML SYR ONE (12:21)
[2020-04-18] MEDS ORDERED: PHENYLEPHRINE-0.9% NACL SYG 1 MG/10 ML SYRINGE ONE (12:21)
[2020-04-18] MEDS ORDERED: DEXAMETHASONE SOD PHOS (MDV) 100 MG/10 ML VIAL ONE (12:21)
[2020-04-18] MEDS ORDERED: CITRIC ACID-SODIUM CITRATE 15 ML CUP PO ONE (12:30)
[2020-04-18] MEDS ORDERED: ONDANSETRON 4 MG/2 ML VIAL IVP PRN (13:12)
[2020-04-18] MEDS ORDERED: HYDROcodone/APAP 7.5-325MG 1 EACH TAB PO PRN (13:12)
[2020-04-18] MEDS ORDERED: NALOXONE 0.4 MG/ML 1 ML VIAL IV PRN (13:12)
[2020-04-18] MEDS ORDERED: diphenhydrAMINE 50 MG CAP PO PRN (13:12)
[2020-04-18] MEDS ORDERED: LANOLIN CREAM 5 GM TUBE TOPICAL PRN (13:12)
[2020-04-18] MEDS ORDERED: METOCLOPRAMIDE 5 MG/ML 2 ML VIAL IVP PRN (13:12)
[2020-04-18] MEDS ORDERED: ZOLPIDEM 5 MG TAB PO PRN (13:12)
[2020-04-18] MEDS ORDERED: diphenhydrAMINE 50 MG/ML 1 ML VIAL IVP PRN ×2 (13:12)
--- NOTE | 2020-04-18 13:12 | P.OP ---
Date of Procedure: 04/18/20 Preoperative Diagnosis: 1. at 35 weeks 2 days 2. placental abruption 3. persistent category 2 heart tones Postoperative Diagnosis: 1. at 35 weeks 2 days 2. placental abruption 3. persistent category 2 heart tones Procedure(s) Performed: primary low transverse Anesthesia: spinal Surgeon: Yumiko Lambert Union Laborer #1: Saurav Ambrose Estimated Blood Loss (ml): 500 IV fluids (ml): 500 Urine output (ml): 100 Pathology: other (placenta) Condition: stable Disposition: floor Indications for Procedure: 19-year-old presented at 35 weeks and 1 day complaining of vaginal bleeding and pain. Please see dictated H&P for details on the admission. After she was settled down, her pain and bleeding did increase again and she had some variable decelerations on the monitor. We moved towards delivery and start Pitocin and amniotomy was performed. The fluid was clear at first but then did appear blood-tinged. When she started to make some cervical change and being more active labor pattern the baby started to have variable decelerations with contractions down to 60s with good return to baseline and moderate variability. These variables were unresponsive to IV fluids and stopping the Pitocin as well as oxygen. The baby did not respond to scalp stim and section was called. Informed consent was obtained. Operative Findings: Viable female, Apgars 5 at 1 minute, 8 at 5 minutes, 9 at 10 minutes. Weight 4 lbs. 6 oz. Description of Procedure: Patient was taken to the operating room where spinal anesthesia was found be adequate. She was prepped and draped in normal sterile fashion in dorsal supine position with a leftward tilt. Pfannenstiel skin incision was made the scalpel and carried through to the underlying layer of fascia with the scalpel. Fascia was incised in midline and carried bilaterally with the Brunson scissors. The superior aspect of the fascial incision was grasped with Cass clamps elevated and the underlying rectus muscles dissected off with the Brunson's. Attention was then turned to inferior aspect of same incision which in a similar fashion was grasped tented up and the underlying rectus muscles dissected off with the Brunson's. The rectus muscles were the midline and the peritoneum was identified tented up and entered sharply with the scalpel. The incision was extended superiorly and inferiorly with good visualization of the bladder. The bladder blade was inserted and the vesicouterine peritoneum was incised the Metzenbaums then carried bilaterally and bladder flap created digitally. A low transverse incision was then made on the uterus with the scalpel. This was carried bilaterally and digital manner. Infant's head delivered atraumatically, nose and mouth bulb suctioned, cord clamped and cut, handed off to waiting nurses. Apgars 5,8,9 weight 4 lbs. 6 oz. Placenta delivered manually, intact with three-vessel cord. The uterus is exteriorized and cleared of all clots and debris. The uterine incision was closed with 0 Vicryl in a running locked fashion. Second layer of the same sutures used in imbricating fashion to obtain excellent hemostasis. Bladder flap was then reapproximated using 2-0 Vicryl in a running fashion. Both ovaries and tubes appeared normal. The uterus was placed back into the abdomen. The peritoneum was reapproximated u sing 2-0 Vicryl in a running fashion. The muscles were reapproximated using 2-0 Vicryl in interrupted fashion. The fascia was reapproximated using 0 Vicryl in a running fashion. The subcutaneous tissues closed with 3-0 Vicryl running fashion. The skin was closed dayne. Patient tolerated the procedure well, sponge and instrument counts were correct times 2 and she was taken to the recovery room in stable condition.
[2020-04-18] MEDS ORDERED: OXYTOCIN 20 UNITS/1000 ML NS 1,000 ML IV SCH (13:15)
[2020-04-18] MEDS: KETOROLAC 15 MG/ML 1 ML VIAL IVP SCH ×2 (13:33→20:16)
[2020-04-18] MEDS: SENNOSIDES-DOCUSATE SODIUM 1 EACH TAB PO SCH (20:16)
[2020-04-19] MEDS: diphenhydrAMINE 25 MG CAP PO PRN ×2 (01:36→21:57)
[2020-04-19] MEDS: ACETAMINOPHEN TAB 325 MG TAB PO PRN ×2 (03:10→19:49)
[2020-04-19] MEDS: KETOROLAC 15 MG/ML 1 ML VIAL IVP SCH ×2 (05:47→14:26)
[2020-04-19 06:05] LABS: Basophils % (A) 0 %; Eosinophils # (A) 0.1 k/uL (0-0.7); Eosinophils % (A) 0 %; HCT 32.8 % (34.0-46.0); HGB 10.9 gm/dL (11.4-16.0); Lymphocytes # (A) 1.7 k/uL (1.0-4.8); Lymphocytes % (A) 8 %; MCH 31.3 pg (25.0-35.0); MCHC 33.1 g/dL (31.0-37.0); MCV 94.6 fL (80.0-100.0); Mean Platelet Volume 9.2; Monocytes # (A) 1.3 k/uL (0-1.0); Monocytes % (A) 6 %; Neutrophils # (A) 19.6 k/uL (1.3-7.7); Neutrophils % (A) 86 %; Platelet Count 185 k/uL (150-450); RBC 3.47 m/uL (3.80-5.40); RDW 13.7 % (11.5-15.5); WBC 22.8 k/uL (4.0-11.0)
--- NOTE | 2020-04-19 10:22 | P.PN ---
Progress Note - Text Date: 04/19/2020 Time: The patient is status post section Vital signs stable VAS: 0-10 Patient has no complaints of pain. The patient incurred some minimal itching yesterday, this itching is now subsiding. Pain meds to be managed by service.
--- NOTE | 2020-04-19 10:53 | P.PNOBGPC ---
Subjective - Subjective Principal diagnosis: Postop day 1 Interval history: Anesthesia very well postop day 1. She is involuting, voiding and she is tolerating her diet. She voices no complaints at this time. Vital signs are stable afebrile. Heart regular, lungs clear, extremities without pain. Abdomen soft uterus is firm. Her incision is intact. We'll plan removal of dressing later today. Advancing diet we'll also occur later today. Objective - Vital Signs Latest vital signs: Vital Signs Temp Pulse Resp BP Pulse Ox 04/19/20 08:00 98.0 F 80 16 80/45 04/19/20 03:12 98.0 F 56 L 16 103/48 99 04/19/20 00:00 98.0 F 67 16 104/64 98 04/18/20 20:00 98.0 F 74 16 105/62 97 04/18/20 15:07 67 16 95/51 99 04/18/20 14:36 98.0 F 83 16 112/55 99 04/18/20 14:07 64 16 110/55 99 04/18/20 13:52 66 16 110/55 99 04/18/20 13:37 66 16 115/67 97 04/18/20 13:16 76 16 112/51 98 04/18/20 13:01 97.1 F L 71 16 115/54 100 Intake and Output 04/18/20 04/19/20 04/19/20 22:59 06:59 14:59 Intake Total 30 Output Total 900 600 Balance -870 -600 Intake: Oral 30 Output: Urine 900 600 Uretheral (Davila) 600 Other: Voiding Method Indwelling Catheter # Voids 2 - Exam Lungs: bilateral: normal Chest: Normal S1, Normal S2 Extremities: Present: normal Abdomen: Present: normal appearance, soft. Absent: distention, tenderness Incision: Present: normal, dry, intact Uterus: Present: normal, firm - Labs Labs: Abnormal Lab Results - Last 24 Hours (Table) 04/19/20 Range/Units 05:44 WBC 22.8 H (4.0-11.0) k/uL RBC 3.47 L (3.80-5.40) m/uL Hgb 10.9 L (11.4-16.0) gm/dL Hct 32.8 L (34.0-46.0) % Neutrophils # 19.6 H (1.3-7.7) k/uL Monocytes # 1.3 H (0-1.0) k/uL
[2020-04-19] MEDS: SENNOSIDES-DOCUSATE SODIUM 1 EACH TAB PO SCH ×2 (10:54→19:48)
[2020-04-19] MEDS: LACTATED RINGERS 1,000 ML IV SCH (10:55)
[2020-04-19] MEDS: SIMETHICONE 80 MG CHEWABLE PO PRN ×2 (14:27→21:57)
[2020-04-19] MEDS: IBUPROFEN 600 MG TAB PO PRN (23:38)
[2020-04-20] MEDS: SIMETHICONE 80 MG CHEWABLE PO PRN ×2 (07:09→19:37)
[2020-04-20] MEDS: ACETAMINOPHEN TAB 325 MG TAB PO PRN ×3 (07:09→22:02)
--- NOTE | 2020-04-20 10:06 | P.PNOBGPC ---
Subjective - Subjective Principal diagnosis: Postoperative day 2 Interval history: Overall Yoshi doing very well. She is involuting, voiding and she is tolerating a diet. She is now passed flatus and had a bowel movement. All questions are answered for her at this time. Her vital signs are stable and she is afebrile. Heart regular, lungs clear, extremities without pain. Abdomen soft positive bowel sounds are noted and her incision is otherwise clean dry and intact. Patient reports: Reports appetite normal, Reports voiding normally, Reports pain well controlled, Reports ambulating normally Rulo: in NICU Objective - Vital Signs Latest vital signs: Vital Signs Temp Pulse Resp BP Pulse Ox 04/20/20 08:00 97.4 F L 62 16 110/60 04/20/20 03:41 98.1 F 73 16 92/57 04/19/20 20:00 97.8 F 85 16 107/68 04/19/20 16:00 98.0 F 78 14 99/56 04/19/20 12:00 98.3 F 72 14 102/61 99 Intake and Output 04/19/20 04/20/20 04/20/20 22:59 06:59 14:59 Other: # Voids 2 2 2 - Exam Lungs: bilateral: normal Chest: Normal S1, Normal S2 Extremities: Present: normal Abdomen: Present: normal appearance, soft. Absent: distention, tenderness Incision: Present: normal, dry, intact Uterus: Present: normal, firm
[2020-04-20] MEDS: IBUPROFEN 600 MG TAB PO PRN ×2 (10:17→18:09)
[2020-04-20] MEDS: SENNOSIDES-DOCUSATE SODIUM 1 EACH TAB PO SCH ×3 (12:35→19:37)
[2020-04-20 16:20] VITALS: RESP 16
[2020-04-21] MEDS: IBUPROFEN 600 MG TAB PO PRN ×2 (00:40→08:58)
[2020-04-21] MEDS: SENNOSIDES-DOCUSATE SODIUM 1 EACH TAB PO SCH (08:58)
--- NOTE | 2020-04-21 10:05 | P.DS ---
Providers Date of admission: 04/18/20 06:41 Expected date of discharge: 04/21/20 Attending physician: Yumiko Lambert Primary care physician: Stated None Hospital Course: Family history very well post op day 3. She is involuting, voiding and tolerating her diet. She voices no complaints and is requesting discharge home today. Prescriptions for Motrin and [place] or foreign to her pharmacy discharge instructions were thoroughly reviewed. We'll plan to remove dayne today and have her follow up with Dr. Lambert in 1 week. On physical exam vital signs are stable and afebrile. Heart regular, lungs clear, extremities without pain. Abdomen soft her incision is clean dry and intact and her now sounds are noted. Assessment postop day 3 Plan remove dayne and discharged home today. Prescriptions for narcotics and Motrin provided as is prescribed for a breast pump Patient Condition at Discharge: Good Plan - Discharge Summary New Discharge Prescriptions: New Ibuprofen [Motrin] 600 mg PO Q6HR PRN #30 tab PRN Reason: Pain HYDROcodone/APAP 5-325MG [[place] 5-325] 1 tab PO Q4HR PRN #30 tab PRN Reason: Pain Discharge Medication List HYDROcodone/APAP 5-325MG [[place] 5-325] 1 tab PO Q4HR PRN #30 tab 04/21/20 [Rx] Ibuprofen [Motrin] 600 mg PO Q6HR PRN #30 tab 04/21/20 [Rx] Follow up Appointment(s)/Referral(s): Yumiko Lambert DO [Doctor of Osteopathic Medicine] - 1 Week Activity/Diet/Wound Care/Special Instructions: No heavy lifting, limit stairs and driving, and pelvic rest. If any high temperatures, heavy bleeding, or severe pain call my office Discharge Disposition: HOME SELF-CARE
[2020-04-21 12:37] VITALS: BP 131/77; PULSE 72; TEMP 97.9
== END 2020-04-21 13:25 | disposition home or self-care (01) | DRG 788 ==
LOC: FBPOP 08:10 → 4FBP 11:54 → OBSVTOIN 04-18 06:41
PROVIDERS: ADMIT Obstetrics & Gynecology; ATTEND Obstetrics & Gynecology
PROC: 10D00Z1 Extraction of Products of Conception, Low, Open Approach (ICD-10-PCS; principal; 2020-04-18 12:14)
PROC: 10907ZC Drainage of Amniotic Fluid, Therapeutic from Products of Conception, Via Natural or Artificial Opening (ICD-10-PCS; principal; 2020-04-18 12:14)
PROC: 3E033VJ Introduction of Other Hormone into Peripheral Vein, Percutaneous Approach (ICD-10-PCS; principal; 2020-04-18 12:14)
DX: O45.93 Premature separation of placenta, unspecified, third trimester (principal); Z3A.35 35 weeks gestation of pregnancy; Z37.0 Single live birth; O76 Abnormality in fetal heart rate and rhythm complicating labor and delivery; O99.334 Smoking (tobacco) complicating childbirth; O99.344 Other mental disorders complicating childbirth; O99.52 Diseases of the respiratory system complicating childbirth; F17.210 Nicotine dependence, cigarettes, uncomplicated; F31.9 Bipolar disorder, unspecified; F41.9 Anxiety disorder, unspecified; F90.9 Attention-deficit hyperactivity disorder, unspecified type; J45.909 Unspecified asthma, uncomplicated
CPT/HCPCS: 59025; 76805; 76815; 85025; 86850; 86900; 86901; 88307; 96360; 99215

== ENCOUNTER → 2020-06-18 | Outpatient (CLI) | payer OTHER | END | disposition home or self-care (01) | LOC: LABWHC1 11:23 | PROVIDERS: ATTEND Obstetrics & Gynecology | DX: N91.2 Amenorrhea, unspecified (principal) | CPT/HCPCS: 36415; 84702 ==

== ENCOUNTER 2020-07-06 18:04 | Emergency (ER) | payer OTHER ==
[2020-07-06 18:19] VITALS: BP 108/71; RESP 18; TEMP 99
[2020-07-06] MEDS ORDERED: ACETAMINOPHEN TAB 325 MG TAB PO STA (18:41)
[2020-07-06] MEDS ORDERED: IBUPROFEN 600 MG TAB PO STA (18:41)
[2020-07-06 18:42] VITALS: PULSE 114
--- NOTE | 2020-07-06 18:43 | ED ---
Lower Extremity Injury HPI - General Chief Complaint: Extremity Injury, Lower Stated Complaint: L Foot Injury Time Seen by Provider: 07/06/20 18:32 Source: patient, RN notes reviewed, old records reviewed Mode of arrival: ambulatory Limitations: no limitations - History of Present Illness Initial Comments: This is a 19-year-old female DF for evaluation. She did sustain injury to her forefoot, this was jumping off a ladder pressure. She was able to ambulate after the event. No other injury noted. Patient's complaining of tenderness the top of her foot, again she is able to bear weight and move the ankle freely. No other injury no drugs or alcohol today MD Complaint: foot injury -: hour(s) Injury: Foot: Left Type of Injury: blunt Place: work Severity: moderate Severity scale (1-10): 5 Worsens With: nothing Context: fall, direct blow Other Symptoms: other (none) Associated Symptoms: swelling, tingling Treatments Prior to Arrival: other (none) - Related Data Previous Rx's Medication Instructions Recorded HYDROcodone/APAP 5-325MG [[place] 1 tab PO Q4HR PRN #30 tab 04/21/20 5-325] Ibuprofen [Motrin] 600 mg PO Q6HR PRN #30 tab 04/21/20 Allergies Allergy/AdvReac Type Severity Reaction Status Date / Time No Known Allergies Allergy Verified 07/06/20 18:18 Review of Systems ROS Statement: Those systems with pertinent positive or pertinent negative responses have been documented in the HPI. ROS Other: All systems not noted in ROS Statement are negative. Past Medical History Past Medical History: Asthma Additional Past Medical History / Comment(s): season allergies History of Any Multi-Drug Resistant Organisms: None Reported Past Surgical History: Section Additional Past Surgical History / Comment(s): tongue clipped Past Anesthesia/Blood Transfusion Reactions: No Reported Reaction Past Psychological History: ADD/ADHD, Anxiety, Bipolar, Depression Smoking Status: Former smoker Past Alcohol Use History: None Reported Past Drug Use History: None Reported - Past Family History Mother Family Medical History: No Reported History General Exam Limitations: no limitations General appearance: alert, in no apparent distress Head exam: Present: atraumatic, normocephalic, normal inspection Eye exam: Present: normal appearance, PERRL, EOMI. Absent: scleral icterus, conjunctival injection, periorbital swelling ENT exam: Present: normal exam, mucous membranes moist Neck exam: Present: normal inspection. Absent: tenderness, meningismus, lymphadenopathy Respiratory exam: Present: normal lung sounds bilaterally. Absent: respiratory distress, wheezes, rales, rhonchi, stridor Cardiovascular Exam: Present: regular rate, normal rhythm, normal heart sounds. Absent: systolic murmur, diastolic murmur, rubs, gallop, clicks GI/Abdominal exam: Present: soft, normal bowel sounds. Absent: distended, tenderness, guarding, rebound, rigid Extremities exam: Present: normal inspection, full ROM, normal capillary refill. Absent: tenderness, pedal edema, joint swelling, calf tenderness Back exam: Present: normal inspection Neurological exam: Present: alert, oriented X3, CN II-XII intact Psychiatric exam: Present: normal affect, normal mood Skin exam: Present: warm, dry, intact, normal color. Absent: rash Course Vital Signs 07/06/20 18:16 Temperature 99.0 F Pulse Rate 114 H Respiratory 18 Rate Blood Pressure 108/71 O2 Sat by Pulse 97 Oximetry - Reevaluation(s) Reevaluation #1: Medical records reviewed No real significant improvement here in the emergency department Patient informed results and questions answered Patient is able to ambulate Medical Decision Making - Medical Decision Making 19 female who did suffer a left foot injury complaining of left foot pain. No triadic injury is noted here in the ER patient can be discharged home - Radiology Data Radiology results: report reviewed (X-ray left foot negative for traumatic injury), image reviewed Disposition Clinical Impression: Foot contusion Disposition: HOME SELF-CARE Condition: Good Instructions (If sedation given, give patient instructions): Ankle Sprain (ED), Foot Contusion (ED) Is patient prescribed a controlled substance at d/c from ED?: No Referrals: None,Stated [Primary Care Provider] - 1-2 days
--- NOTE | 2020-07-06 18:44 | XR ---
EXAMINATION TYPE: XR foot complete LT DATE OF EXAM: 07/06/2020 COMPARISON: 02/24/2015 HISTORY: Pain TECHNIQUE: 3 views. Metatarsals are intact. I see no fracture nor dislocation. Joint spaces are normal. There are no eros ions. IMPRESSION: Negative left foot exam. No change.
== END 2020-07-06 18:58 | disposition home or self-care (01) ==
LOC: EC 18:04
DX: S90.32XA Contusion of left foot, initial encounter (principal); Z87.891 Personal history of nicotine dependence; W11.XXXA Fall on and from ladder, initial encounter; Y93.89 Activity, other specified; Y92.89 Other specified places as the place of occurrence of the external cause
CPT/HCPCS: 99284

== ENCOUNTER 2021-04-30 11:47 | Emergency (ER) | payer OTHER ==
[2021-04-30 11:52] VITALS: BP 112/78; PULSE 100; RESP 18; TEMP 98.1
[2021-04-30] MEDS ORDERED: IBUPROFEN 600 MG TAB PO STA (12:09)
--- NOTE | 2021-04-30 12:15 | ED ---
ENT HPI - General Chief complaint: ENT Stated complaint: L ear numbness Time Seen by Provider: 04/30/21 11:58 Source: patient Mode of arrival: ambulatory Limitations: no limitations - History of Present Illness Initial comments: Patient is a 20-year-old female presenting to emergency Department with complaints of left ear pain that started approximately 3 AM this morning. She states it also feels like she can't hear out of it. She denies any other symptoms such as fever, chills, cough or congestion. She states she's had some mild ALLERGY symptoms which she usually takes ALLERGY medication for and is better. She denies any injuries to her head or her ear. She denies a chest pressure was breath, no dominant pain or nausea or vomiting. She denies any other complaints today. - Related Data Previous Rx's Medication Instructions Recorded HYDROcodone/APAP 5-325MG [[place] 1 tab PO Q4HR PRN #30 tab 04/21/20 5-325] Ibuprofen [Motrin] 600 mg PO Q6HR PRN #30 tab 04/21/20 Amoxicillin 875 mg PO Q12HR 7 Days #14 tablet 04/30/21 Allergies Allergy/AdvReac Type Severity Reaction Status Date / Time No Known Allergies Allergy Verified 04/30/21 11:50 Review of Systems ROS Statement: Those systems with pertinent positive or pertinent negative responses have been documented in the HPI. ROS Other: All systems not noted in ROS Statement are negative. Past Medical History Past Medical History: Asthma Additional Past Medical History / Comment(s): season allergies History of Any Multi-Drug Resistant Organisms: None Reported Past Surgical History: Section Additional Past Surgical History / Comment(s): tongue clipped Past Anesthesia/Blood Transfusion Reactions: No Reported Reaction Past Psychological History: ADD/ADHD, Anxiety, Bipolar, Depression Smoking Status: Former smoker Past Alcohol Use History: None Reported Past Drug Use History: None Reported - Past Family History Mother Family Medical History: No Reported History General Exam - General Exam Comments Initial Comments: GENERAL: Patient is well-developed and well-nourished. Patient is nontoxic and in no acute distress. HEAD: Atraumatic, normocephalic. EYES: Pupils equal round and reactive to light, extraocular movements intact, sclera anicteric, conjunctiva are normal. Eyelids were unremarkable. ENT: Right TM appears normal, EAC is also normal. Left TM is erythematous, bulging, EAC appears normal. nares patent, oropharynx clear without exudates. Moist mucous membranes. NECK: Normal range of motion, supple without lymphadenopathy or JVD. LUNGS: Unlabored respirations. Breath sounds clear to auscultation bilaterally and equal. No wheezes rales or rhonchi. HEART: Regular rate and rhythm without murmurs, rubs or gallops. ABDOMEN: Soft, nontender, normoactive bowel sounds. No guarding, no rebound. No masses appreciated. : Deferred MUSCULOSKELETAL: Normal extremities with adequate strength and normal range of motion, no pitting or edema. No clubbing or cyanosis. SKIN: Warm, Dry, normal turgor, no rashes or lesions noted. Limitations: no limitations Course Vital Signs 04/30/21 11:50 Temperature 98.1 F Pulse Rate 100 Respiratory 18 Rate Blood Pressure 112/78 O2 Sat by Pulse 98 Oximetry Medical Decision Making - Medical Decision Making Patient is a 20-year-old female here with left ear pain that started approximately 3 AM this morning. No injuries or trauma. On exam, she does have an erythematous, bulging TM on the left side. No other acute findings. Patient will be started on amoxicillin for otitis media. I recommended ibu profen for the pain and discomfort. She is agreeable to this plan of care and she is stable for discharge. Return parameters were discussed with her and she verbalized understanding. Case discussed Dr. Raman. Disposition Clinical Impression: Left otitis media Disposition: HOME SELF-CARE Condition: Stable Instructions (If sedation given, give patient instructions): Ear Infection (ED) Additional Instructions: Please return to the Emergency Department if symptoms worsen or any other concerns. Take antibiotics as prescribed. Recommend ibuprofen/Motrin for discomfort. Follow-up with your primary care. Prescriptions: Amoxicillin 875 mg PO Q12HR 7 Days #14 tablet Is patient prescribed a controlled substance at d/c from ED?: No Referrals: Andrey Godinez MD [Primary Care Provider] - 1-2 days Time of Disposition: 12:14
== END 2021-04-30 12:22 | disposition home or self-care (01) ==
LOC: EC 11:47
DX: H66.92 Otitis media, unspecified, left ear (principal); J45.909 Unspecified asthma, uncomplicated; F31.9 Bipolar disorder, unspecified; F41.9 Anxiety disorder, unspecified; F90.9 Attention-deficit hyperactivity disorder, unspecified type; Z87.891 Personal history of nicotine dependence
CPT/HCPCS: 99283

== ENCOUNTER 2021-06-01 15:23 | Inpatient (IN) | payer MEDICAID, OTHER ==
--- NOTE | 2021-06-01 19:02 | ED ---
General Adult HPI - General Chief complaint: Psychiatric Symptoms Stated complaint: mental health Time Seen by Provider: 06/01/21 18:30 Source: patient, police, RN notes reviewed, old records reviewed Mode of arrival: ambulatory Limitations: no limitations - History of Present Illness Initial comments: I evaluated the patient when she was placed in a room. Patient is a 20-year-old female with past medical history remarkable for asthma who presents emergency department after being petitioned by police for psychiatric evaluation. Patient was found to have notes that appeared to express suicide intent in her possession. They state that she was threatening suicide. She denies any suicidal ideations at this time. States she was told to "write things down when I am stressed out or feeling down which is what I did." She states she currently does not feel suicidal. Denies any homicidal ideations, attempts, plans. Denies any visual or auditory hallucinations. His no other acute complaints at this time. Denies chest pain, short is breath, fevers, chills, cough. Denies any sick contacts. Patient presents after psychiatric petition for psychiatric evaluation. - Related Data Home Medications Medication Instructions Recorded Confirmed medroxyPROGESTERone [Depo-Provera] 150 mg IM Q84D 06/01/21 06/01/21 Allergies Allergy/AdvReac Type Severity Reaction Status Date / Time No Known Allergies Allergy Verified 06/01/21 19:32 Review of Systems ROS Statement: Those systems with pertinent positive or pertinent negative responses have been documented in the HPI. Review of Systems: CONST: Denies fever EYES: Denies blurry vision ENT: Denies nasal congestion C/V: Denies Chest pain RESP: Denies shortness of breath GI: Denies abdominal pain : Denies dysuria SKIN: Denies rash. MSK: Denies joint pain. NEURO: Denies headache PSYCH: Denies suicidal and homicidal ideations/plans/attempts. Denies visual or auditory hallucinations. ROS Other: All systems not noted in ROS Statement are negative. Past Medical History Past Medical History: Asthma Additional Past Medical History / Comment(s): season allergies History of Any Multi-Drug Resistant Organisms: None Reported Past Surgical History: Section Additional Past Surgical History / Comment(s): tongue clipped Past Anesthesia/Blood Transfusion Reactions: No Reported Reaction Past Psychological History: ADD/ADHD, Anxiety, Bipolar, Depression Smoking Status: Former smoker Past Alcohol Use History: None Reported Past Drug Use History: None Reported - Past Family History Mother Family Medical History: No Reported History General Exam - General Exam Comments Initial Comments: General: Appears in no acute distress. HEAD: Normal with no signs of head trauma. EYES: PERRLA, EOMI, conjunctiva normal, no discharge. ENT: Hearing grossly intact, normal oropharynx. RESPIRATORY: Clear breath sounds bilaterally. No wheezes, rales, or rhonchi. C/V: Regular rate and rhythm. S1 and S2 auscultated, no edema, peripheral pulses 2+ and intact throughout ABD: Abd is soft, nontender, nondistended EXT: Normal range of motion, no obvious deformity SKIN: No rashes or lesions observed on exposed skin. NEURO: Alert and oriented 4. No focal deficits. Limitations: no limitations Course Vital Signs 06/01/21 06/01/21 06/01/21 16:33 19:00 20:00 Temperature 98.2 F Pulse Rate 92 Respiratory 18 18 18 Rate Blood Pressure 118/77 O2 Sat by Pulse 99 Oximetry Medical Decision Making - Medical Decision Making Based on the patient's presentation and physical exam, I'm concerned that the patient requires a psychiatric evaluation at this time. Patient does have suicidal but did discuss suicide found in her possessions. EPS was therefore consulted. UDS as well as the BAT were ordered. BAT is 0. UDS is pending. At this time patient is medically cleared for evaluation by psychiatry. Disposition is pending psychiatric evaluation. Psychiatry evaluated the patient and deemed that the patient requires admission to inpatient psychiatry. Patient is medically cleared and will be admitted in stable condition. She refuses to sign herself in, and therefore a medication was completed by myself. Patient was therefore admitted in stable condition to inpatient psychiatry. Covid swab is ordered and still pending. - Lab Data Lab Results 06/01/21 Range/Units 20:28 Urine Opiates Screen Not Detected (NotDetected) Ur Oxycodone Screen Not Detected (NotDetected) Urine Methadone Screen Not Detected (NotDetected) Ur Propoxyphene Screen Not Detected (NotDetected) Ur Barbiturates Screen Not Detected (NotDetected) U Tricyclic Antidepress Not Detected (NotDetected) Ur Phencyclidine Scrn Not Detected (NotDetected) Ur Amphetamines Screen Not Detected (NotDetected) U Methamphetamines Scrn Not Detected (NotDetected) U Benzodiazepines Scrn Not Detected (NotDetected) Urine Cocaine Screen Not Detected (NotDetected) U Marijuana (THC) Screen Not Detected (NotDetected) Disposition Clinical Impression: Encounter for psychiatric assessment, Suicidal ideation Disposition: ADMITTED IP TO THIS [facility] Condition: Stable Referrals: None,Stated [Primary Care Provider] - 1-2 days
[2021-06-01 21:24] LABS: Amphetamine Screen,Urine Not Detected (NotDetected); Barbiturate Screen,Urine Not Detected (NotDetected); Benzodiazepines Screen,Urine Not Detected (NotDetected); Cocaine Screen,Urine Not Detected (NotDetected); Methadone Screen, Urine Not Detected (NotDetected); Opiate Screen,Urine Not Detected (NotDetected); Oxycodone Screen, Urine Not Detected (NotDetected); Phencyclidine Screen,Urine Not Detected (NotDetected); Tricyclic Antidepressant,Urine Not Detected (NotDetected); Urn Cannabinoid Scrn Not Detected (NotDetected)
[2021-06-02] MEDS ORDERED: HALOPERIDOL LACTATE 5 MG/ML 1 ML VIAL IM PRN
[2021-06-02] MEDS ORDERED: haloperidoL 1 MG TAB PO PRN
[2021-06-02] MEDS ORDERED: ACETAMINOPHEN TAB 325 MG TAB PO PRN
[2021-06-02] MEDS ORDERED: LORazepam 1 MG TAB PO PRN
[2021-06-02] MEDS ORDERED: LORazepam 2 MG/ML INJ IM PRN
[2021-06-02] MEDS ORDERED: MAG HYDROX/AL HYDROX/SIMETH 30 ML CUP PO PRN
[2021-06-02 00:05] VITALS: PULSE 90
[2021-06-02 02:24] VITALS: BP 124/74; RESP 16; TEMP 97.9
[2021-06-02 08:36] LABS: ALT 14 U/L (4-34); AST 20 U/L (14-36); African American GFR (CKD) >90 (>60 ml/min/1.73 sqM); Albumin 4.5 g/dL (3.5-5.0); Alkaline Phosphatase 54 U/L (38-126); Anion Gap 9 mmol/L; Blood Urea Nitrogen 13 mg/dL (7-17); Calcium 9.9 mg/dL (8.4-10.2); Carbon Dioxide 24 mmol/L (22-30); Chloride 106 mmol/L (98-107); Glucose 100 mg/dL (74-99); Non-African American GFR(CKD) >90 (>60 ml/min/1.73 sqM); Potassium 4.2 mmol/L (3.5-5.1); Sodium 139 mmol/L (137-145); Total Bilirubin 1.3 mg/dL (0.2-1.3)
[2021-06-02] MEDS ORDERED: MAGNESIUM HYDROXIDE 2,400 MG/10 ML CUP PO PRN (09:00)
[2021-06-02] MEDS ORDERED: NICOTINE 14MG/24HR PATCH TRANSDERM SCH (09:00)
[2021-06-02 09:08] LABS: Basophils % (A) 0 %; Eosinophils # (A) 0.2 k/uL (0-0.7); Eosinophils % (A) 4 %; HCT 42.2 % (34.0-46.0); HGB 14.3 gm/dL (11.4-16.0); Lymphocytes # (A) 2.1 k/uL (1.0-4.8); Lymphocytes % (A) 32 %; MCH 31.8 pg (25.0-35.0); MCHC 33.9 g/dL (31.0-37.0); MCV 93.9 fL (80.0-100.0); Mean Platelet Volume 7.8; Monocytes # (A) 0.3 k/uL (0-1.0); Monocytes % (A) 4 %; Neutrophils # (A) 3.7 k/uL (1.3-7.7); Neutrophils % (A) 58 %; Platelet Count 273 k/uL (150-450); RBC 4.49 m/uL (3.80-5.40); RDW 12.5 % (11.5-15.5); WBC 6.5 k/uL (3.8-10.6)
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
[2021-06-02 15:48] LABS: LDL Cholesterol,Calculated 66.8 mg/dL (0.0-131.0); VLDL Calculation 9.72 mg/dL (5.00-40.00)
== END 2021-06-02 12:58 | disposition home or self-care (01) | DRG 882 ==
LOC: EC 15:23 → 3MHU 23:29
PROVIDERS: ADMIT Psychiatry & Neurology Psychiatry; ATTEND Psychiatry & Neurology Psychiatry
DX: F43.20 Adjustment disorder, unspecified (principal); R45.851 Suicidal ideations; J45.909 Unspecified asthma, uncomplicated; Z20.822 Contact with and (suspected) exposure to COVID-19; F90.9 Attention-deficit hyperactivity disorder, unspecified type; Z87.891 Personal history of nicotine dependence; Z79.3 Long term (current) use of hormonal contraceptives; Z62.810 Personal history of physical and sexual abuse in childhood; Z98.891 History of uterine scar from previous surgery; Z98.890 Other specified postprocedural states; Z81.1 Family history of alcohol abuse and dependence; Z81.4 Family history of other substance abuse and dependence; Z91.51 Personal history of suicidal behavior
CPT/HCPCS: 80053; 80061; 80306; 82075; 83036; 84443; 85025; 87635; 99285

== ENCOUNTER → 2021-07-23 | Outpatient (CLI) | payer OTHER | END | disposition home or self-care (01) | LOC: LABWHC1 11:44 | PROVIDERS: ATTEND Obstetrics & Gynecology | DX: N92.6 Irregular menstruation, unspecified (principal) | CPT/HCPCS: 36415; 84702 ==

== ENCOUNTER → 2022-06-14 | Outpatient (CLI) | payer OTHER | END | disposition home or self-care (01) | LOC: LABWHC1 10:09 | PROVIDERS: ATTEND Obstetrics & Gynecology | DX: N94.89 Other specified conditions associated with female genital organs and menstrual cycle (principal) | CPT/HCPCS: 36415; 86480 ==

== ENCOUNTER → 2022-06-16 | Outpatient (CLI) | payer OTHER | END | disposition home or self-care (01) | LOC: LABWHC1 14:26 | PROVIDERS: ATTEND Obstetrics & Gynecology | DX: N94.89 Other specified conditions associated with female genital organs and menstrual cycle (principal) | CPT/HCPCS: 36415; 84702 ==

== ENCOUNTER 2023-03-12 12:40 | Emergency (ER) | payer OTHER ==
--- NOTE | 2023-03-12 13:10 | ED ---
Female Urogenital HPI - General Chief complaint: Vaginal Bleeding Stated complaint: 3 weeks preg-abd pain Time Seen by Provider: 03/12/23 12:53 Source: patient, RN notes reviewed Mode of arrival: ambulatory Limitations: no limitations - History of Present Illness Initial comments: This is a 22-year-old female who presents to the emergency department for vaginal bleeding in . Patient states that she could be anywhere from 3-6 weeks and has had 3 positive tests at home. Reports lower abdominal cramping starting last night and bleeding starting today. States that this was initially light bleeding, however when she went to the bathroom in the emergency department, she had much more bleeding. She does continue to have minor abdominal cramping. Denies any associated nausea or vomiting. Also denies any dizziness or lightheadedness. Patient is . She has seen Dr. Lambert in the past. Denies any history of bleeding like this in prior pregnancies. Denies any fevers, chills, sore throat, cough, dyspnea, chest pain, palpitations, nausea, vomiting, diarrhea, back pain, or headaches. MD Complaint: vaginal bleeding Last Menstrual Period: 02/18/23 - Related Data Home Medications Medication Instructions Recorded Confirmed medroxyPROGESTERone [Depo-Provera] 150 mg IM Q84D 06/01/21 11/14/21 Previous Rx's Medication Instructions Recorded Ibuprofen [Motrin] 400 mg PO Q6HR PRN #30 tab 11/14/21 Cephalexin [Keflex] 500 mg PO Q8HR 5 Days #15 cap 03/12/23 Allergies Allergy/AdvReac Type Severity Reaction Status Date / Time No Known Allergies Allergy Verified 03/12/23 12:52 Review of Systems ROS Statement: Those systems with pertinent positive or pertinent negative responses have been documented in the HPI. ROS Other: All systems not noted in ROS Statement are negative. Past Medical History Past Medical History: Asthma Additional Past Medical History / Comment(s): season allergies History of Any Multi-Drug Resistant Organisms: None Reported Past Surgical History: Section Additional Past Surgical History / Comment(s): tongue clipped Past Anesthesia/Blood Transfusion Reactions: No Reported Reaction Past Psychological History: ADD/ADHD, Anxiety, Bipolar, Depression Smoking Status: Vaper Past Alcohol Use History: Occasional Past Drug Use History: None Reported - Past Family History Mother Family Medical History: No Reported History General Exam Limitations: no limitations General appearance: alert, in no apparent distress Head exam: Present: atraumatic, normocephalic, normal inspection Respiratory exam: Present: normal lung sounds bilaterally. Absent: respiratory distress, wheezes, rales, rhonchi, stridor Cardiovascular Exam: Present: regular rate, normal rhythm, normal heart sounds. Absent: systolic murmur, diastolic murmur, rubs, gallop, clicks Neurological exam: Present: alert, oriented X3, CN II-XII intact Psychiatric exam: Present: normal affect, normal mood Skin exam: Present: warm, dry, intact, normal color. Absent: rash Course Vital Signs 03/12/23 03/12/23 03/12/23 12:49 13:23 14:35 Temperature 97.9 F 97.9 F Pulse Rate 93 84 79 Respiratory 20 18 18 Rate Blood Pressure 108/68 109/66 107/66 O2 Sat by Pulse 100 100 100 Oximetry 03/12/23 16:09 Temperature 97.1 F L Pulse Rate 76 Respiratory 20 Rate Blood Pressure 111/77 O2 Sat by Pulse 100 Oximetry Medical Decision Making - Medical Decision Making This is a 22-year-old female who presents to the emergency department for vaginal bleeding in . Was pt. sent in by a medical professional or institution? @ -No Did you speak to anyone other than the patient for history? @ -No Did you review nursing and triage notes? @ -Yes, and I agree, it is accurate with regards to the patient's symptoms. Were old charts reviewed? @ -No Differential Diagnosis? @ -Differential Vaginal Bleeding: Spontaneous , threatened , molar , ectopic , incompetent cervix, placenta previa, uterine rupture, dysfunctional uterine bleeding, hemorrhage, uterine fibroids, malignancy, coagulopathy, PID, cervicitis, adenomyosis, vaginal trauma, this is not meant to be an all- inclusive list. EKG interpreted by me (3pts min.)? @ -Not obtained X-rays interpreted by me (1pt min.)? @ -Not obtained CT interpreted by me (1pt min.)? @ -Not obtained U/S interpreted by me (1pt. min.)? @ -Not interpreted by me What testing was considered but not performed? (CT, X-rays, U/S, labs)? Why? @ -None What meds were considered but not given? Why? @ -None Did you discuss the management of the patient with other professionals? @ -No Did you reconcile home meds? @ -No Was smoking cessation discussed for >3mins.? @ -No Was critical care preformed (if so, how long)? @ -No Were there social determinants of health that impacted care today? How? (Homelessness, low income, unemployed, alcoholism, drug addiction, transportation, low edu. Level, literacy, decrease access to med. care, halfway, rehab)? @ -No Was there de-escalation of care discussed even if they declined? (Discuss DNR or withdrawal of care, Hospice)? @ -No What co-morbidities impacted this encounter? (DM, HTN, Smoking, COPD, CAD, Cancer, CVA, Hep., AIDS, mental health diagnosis, sleep apnea, morbid obesity)? @ - Was patient admitted / discharged? @ -Discharged. Lab work obtained and found to be nonactionable. Obstetrics ultrasound obtained, however it was far too early to visualize anything on ultrasound, as her hCG was only 9. Urinalysis is suggestive of asymptomatic bacteriuria. Patient was given a lab order to have her hCG, repeated in 48 hours. Additionally, a prescription for Keflex was provided for asymptomatic bacteriuria. She is advised to begin a vitamin and to follow-up with Dr. Lambert for ongoing obstetrics management. Undiagnosed new problem with uncertain prognosis? @ -None Drug Therapy requiring intensive monitoring for toxicity (Heparin, Nitro, Insulin, Cardizem)? @ -None Were any procedures done? @ -None Diagnosis/symptom? @ -Threatened Acute, or Chronic, or Acute on Chronic? @ -Acute Uncomplicated (without systemic symptoms) or Complicated (systemic symptoms)? @ -Uncomplicated Side effects of treatment? @ -None Exacerbation, Progression, or Severe Exacerbation] @ -Not applicable Poses a threat to life or bodily function? @ -No Return precautions reviewed in depth, the patient is instructed to return to the emergency department with any new, worsening, or concerning symptoms. Patient verbalized understanding. This case was discussed in detail with the attending ED physician, Dr. Raman. Presentation, findings, and treatment plan discussed in detail as well. - Lab Data Result diagrams: 03/12/23 13:07 03/12/23 13:07 Lab Results 03/12/23 03/12/23 03/12/23 Range/Units 13:07 13:07 13:07 WBC 6.2 (3.8-10.6) k/uL RBC 4.40 (3.80-5.40) m/uL Hgb 14.1 (11.4-16.0) gm/dL Hct 40.9 (34.0-46.0) % MCV 92.9 (80.0-100.0) fL MCH 32.0 (25.0-35.0) pg MCHC 34.5 (31.0-37.0) g/dL RDW 12.5 (11.5-15.5) % Plt Count 197 (150-450) k/uL MPV 7.8 Neutrophils % 76 % Lymphocytes % 17 % Monocytes % 4 % Eosinophils % 3 % Basophils % 0 % Neutrophils # 4.7 (1.3-7.7) k/uL Lymphocytes # 1.0 (1.0-4.8) k/uL Monocytes # 0.2 (0-1.0) k/uL Eosinophils # 0.2 (0-0.7) k/uL Basophils # 0.0 (0-0.2) k/uL Sodium 139 (137-145) mmol/L Potassium 3.9 (3.5-5.1) mmol/L Chloride 106 (98-107) mmol/L Carbon Dioxide 23 (22-30) mmol/L Anion Gap 10 mmol/L BUN 8 (7-17) mg/dL Creatinine 0.54 (0.52-1.04) mg/dL Est GFR (CKD-EPI)AfAm >90 (>60 ml/min/1.73 sqM) Est GFR (CKD-EPI)NonAf >90 (>60 ml/min/1.73 sqM) Glucose 78 (74-99) mg/dL Calcium 9.0 (8.4-10.2) mg/dL Total Bilirubin 1.1 (0.2-1.3) mg/dL AST 23 (14-36) U/L ALT 17 (4-34) U/L Alkaline Phosphatase 60 (38-126) U/L Total Protein 7.5 (6.3-8.2) g/dL Albumin 4.8 (3.5-5.0) g/dL HCG, Quant 9.3 mIU/mL Urine Color Light Red Urine Appearance Cloudy H (Clear) Urine pH 6.0 (5.0-8.0) Ur Specific [place] 1.018 (1.001-1.035) Urine Protein Trace H (Negative) Urine Glucose (UA) Negative (Negative) Urine Ketones Negative (Negative) Urine Blood Large H (Negative) Urine Nitrite Negative (Negative) Urine Bilirubin Negative (Negative) Urine Urobilinogen <2.0 (<2.0) mg/dL Ur Leukocyte Esterase Trace H (Negative) Urine RBC 16 H (0-5) /hpf Urine WBC 7 H (0-5) /hpf Ur Squamous Epith Cells 3 (0-4) /hpf Urine Bacteria Few H (None) /hpf Urine Mucus Moderate H (None) /hpf Blood Type Blood Type Recheck Bld Type Recheck Status 03/12/23 Range/Units 13:07 WBC (3.8-10.6) k/uL RBC (3.80-5.40) m/uL Hgb (11.4-16.0) gm/dL Hct (34.0-46.0) % MCV (80.0-100.0) fL MCH (25.0-35.0) pg MCHC (31.0-37.0) g/dL RDW (11.5-15.5) % Plt Count (150-450) k/uL MPV Neutrophils % % Lymphocytes % % Monocytes % % Eosinophils % % Basophils % % Neutrophils # (1.3-7.7) k/uL Lymphocytes # (1.0-4.8) k/uL Monocytes # (0-1.0) k/uL Eosinophils # (0-0.7) k/uL Basophils # (0-0.2) k/uL Sodium (137-145) mmol/L Potassium (3.5-5.1) mmol/L Chloride (98-107) mmol/L Carbon Dioxide (22-30) mmol/L Anion Gap mmol/L BUN (7-17) mg/dL Creatinine (0.52-1.04) mg/dL Est GFR (CKD-EPI)AfAm (>60 ml/min/1.73 sqM) Est GFR (CKD-EPI)NonAf (>60 ml/min/1.73 sqM) Glucose (74-99) mg/dL Calcium (8.4-10.2) mg/dL Total Bilirubin (0.2-1.3) mg/dL AST (14-36) U/L ALT (4-34) U/L Alkaline Phosphatase (38-126) U/L Total Protein (6.3-8.2) g/dL Albumin (3.5-5.0) g/dL HCG, Quant mIU/mL Urine Color Urine Appearance (Clear) Urine pH (5.0-8.0) Ur Specific [place] (1.001-1.035) Urine Protein (Negative) Urine Glucose (UA) (Negative) Urine Ketones (Negative) Urine Blood (Negative) Urine Nitrite (Negative) Urine Bilirubin (Negative) Urine Urobilinogen (<2.0) mg/dL Ur Leukocyte Esterase (Negative) Urine RBC (0-5) /hpf Urine WBC (0-5) /hpf Ur Squamous Epith Cells (0-4) /hpf Urine Bacteria (None) /hpf Urine Mucus (None) /hpf Blood Type O Positive Blood Type Recheck O Pos Bld Type Recheck Status No - Radiology Data Radiology results: report reviewed, image reviewed Disposition Clinical Impression: Vaginal bleeding during Disposition: HOME SELF-CARE Instructions (If sedation given, give patient instructions): Threatened Miscarriage (ED) Additional Instructions: Return to the emergency department with any new, worsening, or concerning symptoms. Take the antibiotic as prescribed for 5 days. Take the lab slip with you to have your hCG level repeated in 2 days, on Tuesday. Make sure you become established with an [facility] for ongoing obstetrics care. Follow up with your primary care provider in 1-2 days. Prescriptions: Cephalexin [Keflex] 500 mg PO Q8HR 5 Days #15 cap Is patient prescribed a controlled substance at d/c from ED?: No Referrals: Juan Parnell [Primary Care Provider] - 1-2 days Yumiko Lambert DO [Doctor of Osteopathic Medicine] - 1-2 days
[2023-03-12 13:19] LABS: Basophils % (A) 0 %; Eosinophils # (A) 0.2 k/uL (0-0.7); Eosinophils % (A) 3 %; HCT 40.9 % (34.0-46.0); HGB 14.1 gm/dL (11.4-16.0); Lymphocytes % (A) 17 %; MCHC 34.5 g/dL (31.0-37.0); MCV 92.9 fL (80.0-100.0); Mean Platelet Volume 7.8; Monocytes # (A) 0.2 k/uL (0-1.0); Monocytes % (A) 4 %; Neutrophils # (A) 4.7 k/uL (1.3-7.7); Neutrophils % (A) 76 %; Platelet Count 197 k/uL (150-450); RDW 12.5 % (11.5-15.5); WBC 6.2 k/uL (3.8-10.6)
[2023-03-12 13:28] LABS: RBC,Urine 16 /hpf (0-5); Squamous Epithelial Cell,Urine 3 /hpf (0-4); WBC,Urine 7 /hpf (0-5)
[2023-03-12 13:30] LABS: ALT 17 U/L (4-34); AST 23 U/L (14-36); African American GFR (CKD) >90 (>60 ml/min/1.73 sqM); Albumin 4.8 g/dL (3.5-5.0); Alkaline Phosphatase 60 U/L (38-126); Anion Gap 10 mmol/L; Blood Urea Nitrogen 8 mg/dL (7-17); Carbon Dioxide 23 mmol/L (22-30); Chloride 106 mmol/L (98-107); Glucose 78 mg/dL (74-99); Non-African American GFR(CKD) >90 (>60 ml/min/1.73 sqM); Potassium 3.9 mmol/L (3.5-5.1); Sodium 139 mmol/L (137-145); Total Bilirubin 1.1 mg/dL (0.2-1.3); Total Protein 7.5 g/dL (6.3-8.2)
[2023-03-12 13:39] LABS: Appearance,Urine Cloudy (Clear); Bilirubin,Urine Negative (Negative); Blood,Urine Large (Negative); Color,Urine Light Red; Glucose,Urine (UA) Negative (Negative); Ketones,Urine Negative (Negative); Leukocyte Esterase,Urine Trace (Negative); Nitrite,Urine Negative (Negative); Protein,Urine Trace (Negative); Specific Gravity,Urine 1.018 (1.001-1.035); Urobilinogen,Urine <2.0 mg/dL (<2.0)
[2023-03-12 13:43] LABS: Bacteria,Urine Few /hpf; Mucus,Urine Moderate /hpf
[2023-03-12 13:47] LABS: HCG,Quantitative Serum 9.3 mIU/mL
--- NOTE | 2023-03-12 15:28 | US ---
EXAMINATION TYPE: Transabdominal DATE OF EXAM: 03/12/2023 2:22 PM COMPARISON: NONE CLINICAL INDICATION: Female, 22 years old with history of Pelvic pain and vaginal bleeding in pregnan cy; Spotting. EXAM PERFORMED: Transabdominal (TA) EXAM MEASUREMENTS: GESTATIONAL AGE / DATING Physician Established: Not yet established Dates by LMP: (4 weeks/4 days) EDC: 11/15/2023 Dates by First Scan: No previous this is first scan Dates by Current Scan for: No IUP seen at this t starla MATERNAL ANATOMY Uterus: 9.2 x 4.3 x 3.8 cm Right Ovary: 2.6 x 1.3 x 1.2 cm Left Ovary: 2.7 x 1.0 x 1.1 cm Post CDS / Adnexa: free fluid in right adnexa Presence of corpus luteal cyst: Possible right ovary - 1.4 x 1.4 x 1.0 cm GESTATION / SURVEY IUP: No IUP seen at this time Date of LMP: 02/08/2023, Beta HcG (if available): Available at end of scan= 9.3 No GS, YS and CRL visualized at time of scan. IMPRESSION: 1. Imaging to early for evaluation for intrauterine gestation. Follow-up ultrasound and correlation w ith beta-hCG can be performed.
[2023-03-12 16:13] VITALS: BP 111/77; PULSE 76; RESP 20; TEMP 97.1
== END 2023-03-12 16:15 | disposition home or self-care (01) ==
LOC: EC 12:40
DX: O46.91 Antepartum hemorrhage, unspecified, first trimester (principal); O99.511 Diseases of the respiratory system complicating pregnancy, first trimester; J45.909 Unspecified asthma, uncomplicated; O99.331 Smoking (tobacco) complicating pregnancy, first trimester; F17.290 Nicotine dependence, other tobacco product, uncomplicated; Z86.59 Personal history of other mental and behavioral disorders; Z3A.01 Less than 8 weeks gestation of pregnancy
CPT/HCPCS: 36415; 76801; 80053; 81001; 84702; 85025; 86900; 86901; 99284

== ENCOUNTER → 2023-03-14 | Outpatient (CLI) | payer OTHER | END | disposition home or self-care (01) | LOC: LABWHC1 15:55 | PROVIDERS: ATTEND Physician Assistant | DX: O20.0 Threatened abortion (principal); Z3A.00 Weeks of gestation of pregnancy not specified | CPT/HCPCS: 36415; 84702 ==

== ENCOUNTER 2023-07-06 17:10 | Emergency (ER) | payer OTHER ==
--- NOTE | 2023-07-06 17:13 | ED ---
General Adult HPI - General Source: RN notes reviewed <Kirstie Balderas - Last Filed: 07/06/23 17:11> - General Source: patient, RN notes reviewed, old records reviewed <Emery Merrill - Last Filed: 07/06/23 22:31> - General Stated complaint: 9 weeks-abd pain-sent by OB Time Seen by Provider: 07/06/23 17:12 - History of Present Illness Initial comments: 22-year-old female presents emergency Department with left lower quadrant abdominal pain. She reports a sharp stabbing more constant. She is concerned she may have ectopic . She is approximately 9 weeks . Denies vaginal bleeding. (Kirstie Balderas) Patient is a 22-year-old female who presents emergency department for left lower quadrant abdominal discomfort the setting of . She is approximately 9 weeks . Was sent here to rule out ectopic by her ROPE LAYING MACHINE OPERATOR who she has not yet followed up with. She is taking vitamins. Patient is A1. No complications with this so far. Denies any vaginal bleeding. States it feels like she may have a UTI except for no dysuria or frequency. No fevers. No nausea or vomiting. No other symptoms. Originally evaluated as a quick note. I evaluated her when she is placed in room.Denies any vaginal discharge or bleeding.She states she does have a history of a miscarriage in the first trimester as well as a history of slight premature at 35 weeks secondary to hemorrhage due to damaged placenta. ( Emery Merrill) - Related Data Home Medications Medication Instructions Recorded Confirmed medroxyPROGESTERone [Depo-Provera] 150 mg IM Q84D 06/01/21 11/14/21 Previous Rx's Medication Instructions Recorded Ibuprofen [Motrin] 400 mg PO Q6HR PRN #30 tab 11/14/21 Cephalexin [Keflex] 500 mg PO Q8HR 5 Days #15 cap 03/12/23 Allergies Allergy/AdvReac Type Severity Reaction Status Date / Time No Known Allergies Allergy Verified 03/12/23 12:52 Review of Systems ROS Other: All systems not noted in ROS Statement are negative. <Kirstie Balderas - Last Filed: 07/06/23 17:11> ROS Other: All systems not noted in ROS Statement are negative. <Emery Merrill - Last Filed: 07/06/23 22:31> ROS Statement: Those systems with pertinent positive or pertinent negative responses have been documented in the HPI. Review of Systems: CONST: Denies fever EYES: Denies blurry vision ENT: Denies nasal congestion C/V: Denies Chest pain RESP: Denies shortness of breath GI: Endorses abdominal pain : Denies dysuria SKIN: Denies rash. MSK: Denies joint pain. NEURO: Denies headache (Emery Merrill) Past Medical History Past Medical History: Asthma Additional Past Medical History / Comment(s): season allergies History of Any Multi-Drug Resistant Organisms: None Reported Past Surgical History: Section Additional Past Surgical History / Comment(s): tongue clipped Past Anesthesia/Blood Transfusion Reactions: No Reported Reaction Past Psychological History: ADD/ADHD, Anxiety, Bipolar, Depression Smoking Status: Vaper Past Alcohol Use History: Occasional Past Drug Use History: None Reported - Past Family History Mother Family Medical History: No Reported History <Kirstie Balderas - Last Filed: 07/06/23 17:11> General Exam <Kirstie Balderas - Last Filed: 07/06/23 17:11> <Emery Merrill - Last Filed: 07/06/23 22:31> - General Exam Comments Initial Comments: Visual Physical Exam Vital signs reviewed General: Well-appearing, nontoxic, no acute distress. Head: Normocephalic, atraumatic Eyes: PERRLA, EOMI ENT: Airway patent Chest: Nonlabored breathing Skin: No visual rash, normal skin tone Neuro: Alert and oriented 3 Musculoskeletal: No gross abnormalities (Kirstie Balderas) General: Appears in no acute distress. HEAD: Normal with no signs of head trauma. EYES: PERRLA, EOMI, conjunctiva normal, no discharge. ENT: Hearing grossly intact, normal oropharynx. RESPIRATORY: Clear breath sounds bilaterally. No wheezes, rales, or rhonchi. C/V: Regular rate and rhythm. S1 and S2 auscultated, peripheral pulses 2+ and intact throughout ABD: Abdomen soft, nondistended. Minimal tenderness palpation in the left lower quadrant. No guarding. No rebound tenderness. No peritoneal signs. EXT: Normal range of motion, no obvious deformity SKIN: No rashes or lesions observed on exposed skin. NEURO: Alert and oriented 4. (Emery Merrill) Course Vital Signs 07/06/23 17:27 Temperature 99.1 F Pulse Rate 97 Respiratory 20 Rate Blood Pressure 102/60 O2 Sat by Pulse 99 Oximetry Medical Decision Making <Kirstie Balderas - Last Filed: 07/06/23 17:11> - Lab Data Result diagrams: 07/06/23 17:37 07/06/23 17:40 <Emery Merrill - Last Filed: 07/06/23 22:31> - Medical Decision Making I performed the quick note portion of this exam, verbal signature Kirstie Balderas PA-C (Kirstie Balderas) Was pt. sent in by a medical professional or institution (RIKA Rausch, CLOUD CONSULTANT, urgent care, hospital, or fdc...) When possible be specific @ -Sent by her ROPE LAYING MACHINE OPERATOR office for ultrasound to rule out ectopic. Did you speak to anyone other than the patient for history (EMS, parent, family, police, friend...)? What history was obtained from this source @ -No Did you review nursing and triage notes (agree or disagree)? Why? @ -I reviewed and agree with nursing and triage notes Were old charts reviewed (outside hosp., previous admission, EMS record, old EKG, old radiological studies, urgent care reports/EKG's, fdc records)? Report findings @ -Charts reviewed Differential Diagnosis (chest pain, altered mental status, abdominal pain women, abdominal pain men, vaginal bleeding, weakness, fever, dyspnea, syncope, headache, dizziness, GI bleed, back pain, seizure, CVA, palpatations, mental health, musculoskeletal)? @ -Differential Abdominal Pain Women: Appendicitis, Cholecystitis, diverticulosis, ischemic bowel, pancreatitis, hepatitis, UTI, gastroenteritis, AAA, incarcerated hernia, bowel obstruction, constipation, inflammatory bowel, hepatitis, peptic ulcer disease, splenic infarction, perforated viscus, vulvitis, ovarian torsion, PID, kidney stone, placenta abruption, this is not meant to be an all-inclusive list EKG interpreted by me (3pts min.). @ -None done X-rays interpreted by me (1pt min.). @ -None done CT interpreted by me (1pt min.). @ -None done U/S interpreted by me (1pt. min.). @ - ultrasound reveals a definitive IUP dating 9 weeks and 2 days with a heart rate of 190 bpm. Small subchorionic hemorrhage present. What testing was considered but not performed or refused? (CT, X-rays, U/S, labs)? Why? @ -None What meds were considered but not given or refused? Why? @ -I offered Tylenol which was declined at this time. Did you discuss the management of the patient with other professionals (pro fessionals i.e. , PA, CLOUD CONSULTANT, lab, RT, psych nurse, long term care social worker, marine oil terminal superintendent, teacher, unclaimed property officer, director case management)? Give summary @ -No Was smoking cessation discussed for >3mins.? @ -No Was critical care preformed (if so, how long)? @ -No Were there social determinants of health that impacted care today? How? (Homelessness, low income, unemployed, alcoholism, drug addiction, transporta tion, low edu. Level, literacy, decrease access to med. care, detention, rehab)? @ -No Was there de-escalation of care discussed even if they declined (Discuss DNR or withdrawal of care, Hospice)? DNR status @ -No What co-morbidities impacted this encounter? (DM, HTN, Smoking, COPD, CAD, Cancer, CVA, ARF, Chemo, Hep., AIDS, mental health diagnosis, sleep apnea, morbid obesity)? @ -None Was patient admitted / discharged? Hospital course, mention meds given and route, prescriptions, significant lab abnormalities, going to OR and other pertinent info. @ -Based on the patient's presentation and physical exam, presents complaining of left lower quadrant pain. Does have a history of a miscarriage. Also has a history of premature labor secondary to hemorrhage. Was sent for ultrasound. Originally evaluated as a quick note. I evaluated and updated the patient on the results of her workup when she was placed in a room. Vital signs are within normal limits. Patient's labs are within acceptable limits. Quantitative hCG was not sent and therefore I did have it drawn and sent however she does not need to wait for the results. Urinalysis is contaminated but no bacteria present.. No bleeding at this time. Patient's ultrasound reveals a single definitive IUP dating 9 weeks and 2 days with a heart rate of 190 bpm. Patient is a small subchorionic hemorrhage I discussed results of the patient. She does have a follow-up appointment with Dr. Lambert on July 22. Discussed strict return precautions. I did offer Tylenol for pain and to declined. She will continue vitamins. She'll return if any worsening symptoms. Patient expressed understanding was in agreement with the plan. She understands what sort chorionic hemorrhages, negative discuss this does slightly increased risk of spotting and bleeding during . She exposed understanding. I instructed the patient to follow up with their PCP in the next 1-3 days. I provided contact information for follow up with [facility]. I explained that the patient should return to the emergency department if they experience any worsening symptoms. Strict return precautions were discussed with the patient. The patient expressed understanding of these instructions. I answered all questions that the patient had. The patient was discharged home in good condition with their prescriptions and follow up information. Undiagnosed new problem with uncertain prognosis? @ -No Drug Therapy requiring intensive monitoring for toxicity (Heparin, Nitro, Insulin, Cardizem)? @ -No Were any procedures done? @ -No Diagnosis/symptom? @ - Acute, or Chronic, or Acute on Chronic? @ -Acute Uncomplicated (without systemic symptoms) or Complicated (systemic symptoms)? @ -Uncomplicated Side effects of treatment? @ -No Exacerbation, Progression, or Severe Exacerbation? @ -No Poses a threat to life or bodily function? How? (Chest pain, [place], [place], pneumonia, PE, COPD, DKA, ARF, appy, cholecystitis, CVA, Diverticulitis, Homicidal, Suicidal, threat to staff... and all critical care pts) @ -No Diagnosis/symptom? @ -Small subchorionic hemorrhage, abdominal pain of unknown etiology Acute, or Chronic, or Acute on Chronic? @ -Acute Uncomplicated (without systemic symptoms) or Complicated (systemic symptoms)? @ -Uncomplicated Side effects of treatment? @ -none Exacerbation, Progression, or Severe Exacerbation] @ -no Poses a threat to life or bodily function? @ -Unlikely (Emery Merrill) - Lab Data Lab Results 07/06/23 07/06/23 07/06/23 Range/Units 17:37 17:40 18:14 WBC 9.4 (3.8-10.6) k/uL RBC 4.18 (3.80-5.40) m/uL Hgb 13.5 (11.4-16.0) gm/dL Hct 38.5 (34.0-46.0) % MCV 92.1 (80.0-100.0) fL MCH 32.3 (25.0-35.0) pg MCHC 35.0 (31.0-37.0) g/dL RDW 12.2 (11.5-15.5) % Plt Count 257 (150-450) k/uL MPV 7.5 Neutrophils % 76 % Lymphocytes % 17 % Monocytes % 3 % Eosinophils % 2 % Basophils % 0 % Neutrophils # 7.2 (1.3-7.7) k/uL Lymphocytes # 1.6 (1.0-4.8) k/uL Monocytes # 0.3 (0-1.0) k/uL Eosinophils # 0.2 (0-0.7) k/uL Basophils # 0.0 (0-0.2) k/uL Sodium 135 L (137-145) mmol/L Potassium 3.6 (3.5-5.1) mmol/L Chloride 101 (98-107) mmol/L Carbon Dioxide 23 (22-30) mmol/L Anion Gap 11 mmol/L BUN 10 (7-17) mg/dL Creatinine 0.39 L (0.52-1.04) mg/dL Est GFR (CKD-EPI)AfAm >90 (>60 ml/min/1.73 sqM) Est GFR (CKD-EPI)NonAf >90 (>60 ml/min/1.73 sqM) Glucose 81 (74-99) mg/dL Calcium 9.5 (8.4-10.2) mg/dL Total Bilirubin 0.9 (0.2-1.3) mg/dL AST 19 (14-36) U/L ALT 12 (4-34) U/L Alkaline Phosphatase 46 (38-126) U/L Total Protein 7.4 (6.3-8.2) g/dL Albumin 4.7 (3.5-5.0) g/dL Urine Color Yellow Urine Appearance Cloudy H (Clear) Urine pH 5.5 (5.0-8.0) Ur Specific [place] 1.029 (1.001-1.035) Urine Protein Trace H (Negative) Urine Glucose (UA) Negative (Negative) Urine Ketones Negative (Negative) Urine Blood Negative (Negative) Urine Nitrite Negative (Negative) Urine Bilirubin Negative (Negative) Urine Urobilinogen 4.0 (<2.0) mg/dL Ur Leukocyte Esterase Moderate H (Negative) Urine RBC 2 (0-5) /hpf Urine WBC 10 H (0-5) /hpf Ur Squamous Epith Cells 17 H (0-4) /hpf Urine Mucus Many H (None) /hpf Disposition <Kirstie Balderas - Last Filed: 07/06/23 17:11> Is patient prescribed a controlled substance at d/c from ED?: No Time of Disposition: 22:15 <Emery Merrill - Last Filed: 07/06/23 22:31> Clinical Impression: Subchorionic hemorrhage, , Abdominal pain of unknown etiology Disposition: HOME SELF-CARE Condition: Good Instructions (If sedation given, give patient instructions): Abdominal Pain (ED) Referrals: None,Stated [Primary Care Provider] - 1-2 days Yumiko Lambert DO [Doctor of Osteopathic Medicine] - 1-2 days
[2023-07-06 17:37] VITALS: BP 102/60; PULSE 97; RESP 20; TEMP 99.1
[2023-07-06 17:54] LABS: Basophils % (A) 0 %; Eosinophils # (A) 0.2 k/uL (0-0.7); Eosinophils % (A) 2 %; HCT 38.5 % (34.0-46.0); HGB 13.5 gm/dL (11.4-16.0); Lymphocytes # (A) 1.6 k/uL (1.0-4.8); Lymphocytes % (A) 17 %; MCH 32.3 pg (25.0-35.0); MCV 92.1 fL (80.0-100.0); Mean Platelet Volume 7.5; Monocytes # (A) 0.3 k/uL (0-1.0); Monocytes % (A) 3 %; Neutrophils # (A) 7.2 k/uL (1.3-7.7); Neutrophils % (A) 76 %; Platelet Count 257 k/uL (150-450); RBC 4.18 m/uL (3.80-5.40); RDW 12.2 % (11.5-15.5); WBC 9.4 k/uL (3.8-10.6)
[2023-07-06 18:22] LABS: ALT 12 U/L (4-34); AST 19 U/L (14-36); African American GFR (CKD) >90 (>60 ml/min/1.73 sqM); Albumin 4.7 g/dL (3.5-5.0); Alkaline Phosphatase 46 U/L (38-126); Anion Gap 11 mmol/L; Blood Urea Nitrogen 10 mg/dL (7-17); Calcium 9.5 mg/dL (8.4-10.2); Carbon Dioxide 23 mmol/L (22-30); Chloride 101 mmol/L (98-107); Glucose 81 mg/dL (74-99); Non-African American GFR(CKD) >90 (>60 ml/min/1.73 sqM); Potassium 3.6 mmol/L (3.5-5.1); Sodium 135 mmol/L (137-145); Total Bilirubin 0.9 mg/dL (0.2-1.3); Total Protein 7.4 g/dL (6.3-8.2)
--- NOTE | 2023-07-06 18:37 | US ---
EXAMINATION TYPE: Transabdominal DATE OF EXAM: 07/06/2023 6:11 PM COMPARISON: NONE CLINICAL INDICATION: Female, 22 years old with history of LLQ abdominal pain in ; LLQ pain x 2 weeks. . hx of EXAM PERFORMED: Transabdominal (TA) EXAM MEASUREMENTS: GESTATIONAL AGE / DATING Physician Established: Not yet established Dates by LMP: LMP unknown Dates by First Scan: No previous this is first scan Dates by Current Scan for: (9 weeks/2 days) EDC: 02/06/24 MATERNAL ANATOMY Uterus: 9.0 x 7.4 x 6.0cm Right Ovary: 2.1 x 1.0 x 1.1cm Left Ovary: 2.6 x 2.0 x 2.1cm Post CDS / Adnexa: Possible dilated veins in left adnexa Presence of free fluid: No Presence of corpus luteal cyst: Not seen Presence of subchorionic bleed: Possible. Hypoechoic area seen adjacent to gest sac measuring 1.0 x 0 .7 x 1.3cm GESTATION / SURVEY CRL: 2.53cm (9 weeks/2 days) MSD: Not measured, appears wnl Yolk Sac (normal less than 6mm): 4.5mm Heart Rate: 190 bpm Rhythm: Normal IUP: Viable IUP Date of LMP: unknown Beta HcG (if available): N/A IMPRESSION: 1. Single live intrauterine gestation with ultrasound age 9 weeks 2 days. 2. Small subchorionic hemorrhage.
[2023-07-06 18:39] LABS: Appearance,Urine Cloudy (Clear); Bilirubin,Urine Negative (Negative); Blood,Urine Negative (Negative); Color,Urine Yellow; Glucose,Urine (UA) Negative (Negative); Ketones,Urine Negative (Negative); Leukocyte Esterase,Urine Moderate (Negative); Mucus,Urine Many /hpf; Nitrite,Urine Negative (Negative); PH, Urine 5.5 (5.0-8.0); Protein,Urine Trace (Negative); RBC,Urine 2 /hpf (0-5); Specific Gravity,Urine 1.029 (1.001-1.035); Squamous Epithelial Cell,Urine 17 /hpf (0-4); WBC,Urine 10 /hpf (0-5)
== END 2023-07-06 22:33 | disposition home or self-care (01) ==
LOC: EC 17:10
DX: O20.8 Other hemorrhage in early pregnancy (principal); O26.891 Other specified pregnancy related conditions, first trimester; R10.32 Left lower quadrant pain; O99.511 Diseases of the respiratory system complicating pregnancy, first trimester; J45.909 Unspecified asthma, uncomplicated; O99.331 Smoking (tobacco) complicating pregnancy, first trimester; F17.290 Nicotine dependence, other tobacco product, uncomplicated; Z86.59 Personal history of other mental and behavioral disorders; Z3A.09 9 weeks gestation of pregnancy
CPT/HCPCS: 36415; 76801; 80053; 81001; 84702; 85025; 86900; 86901; 87086; 99284

== ENCOUNTER 2023-09-18 19:43 | Outpatient (CLI) | payer OTHER ==
[2023-09-18 20:36] LABS: Appearance,Urine Cloudy (Clear); Bacteria,Urine Rare /hpf; Bilirubin,Urine Negative (Negative); Blood,Urine Negative (Negative); Color,Urine Light Yellow; Glucose,Urine (UA) Negative (Negative); Ketones,Urine Negative (Negative); Leukocyte Esterase,Urine Negative (Negative); Mucus,Urine Few /hpf; Nitrite,Urine Negative (Negative); Protein,Urine Negative (Negative); RBC,Urine 8 /hpf (0-5); Specific Gravity,Urine 1.022 (1.001-1.035); Squamous Epithelial Cell,Urine 6 /hpf (0-4); Urobilinogen,Urine <2.0 mg/dL (<2.0); WBC,Urine 3 /hpf (0-5)
[2023-09-18 20:51] VITALS: BP 118/69; PULSE 90; RESP 16; TEMP 97.7
--- NOTE | 2023-09-19 02:03 | P.MSEPDOC ---
Presenting Problems - Arrival Data Date of Arrival on Unit: 09/18/23 Time of Arrival on Unit: 19:43 Mode of Transport: Ambulatory - Complaint OB-Reason for Admission/Chief Complaint: Pain Comment: sharp suprapubic pain that started at 1600 Medical History - Information : 4 Para: 2 Term: 2 : 0 Abortions: Spontaneous or Elective: 1 Number of Living Children: 2 - Gestational Age Gestational Age by MARAIN (wks/days): 19 Weeks and 6 Days - History Complications: No Care Review of Systems - Review of Systems Constitutional: No problems Breast: No problems ENT: No problems Cardiovascular: No problems Respiratory: No problems Gastrointestinal: No problems Genitourinary: No problems Musculoskeletal: No problems Neurological: No problems Skin: No problems Vital Signs - Temperature Temperature: 97.7 F Temperature Source: Oral - Pulse Right Sitting Pulse Rate: 90 Pulse Assessment Method: Automatic Cuff - Respirations Respiratory Rate: 16 Oxygen Delivery Method: Room Air O2 Sat by Pulse Oximetry: 98 - Blood Pressure Right Arm Sitting Blood Pressure: 118/69 Blood Pressure Mean: 85 Blood Pressure Source: Automatic Cuff Medical Screen Scoring - Cervical Exam Dilation (cm): 0 Membranes: Intact Physician Notification - Physician Notified Physician Notified Date: 09/18/23 Physician Notified Time: 20:02 Physician: Tung Hall New Order Received: Yes (send U/A, check cervix) - Notification Comment Comment: cervix closed, will call in the am for u/a results Maternal Triage Index - Maternal Triage Index Presenting for scheduled procedure w/no complaint: No - Stat/Priority 1 Stat Priority 1: No - Urgent/Priority 2 Urgent Priority 2: No - Prompt/Priority 3 Prompt Priority 3: No - Non-Urgent/Priority 4 Non-Urgent Priority 4: Yes Criteria Met for Priority 4: 19 5/7 suprapubic pain, has yeast infection. Disposition - Disposition OB Disposition: Discharge to home, Written follow up instructions reviewed Discharge Date: 09/18/23 Discharge Time: 20:15 I agree with the RN Medical Screening Exam: Yes Case reviewed; plan agreed upon as documented in EMR&OBIX.: Yes Diagnosis: RELATED CONDITIONS, UNSPECIFIED, SECOND TRIMESTER
== END 2023-09-18 20:15 | disposition home or self-care (01) ==
LOC: FBPOP 19:43
PROVIDERS: ATTEND Obstetrics & Gynecology
DX: O23.592 Infection of other part of genital tract in pregnancy, second trimester (principal); O26.892 Other specified pregnancy related conditions, second trimester; O99.332 Smoking (tobacco) complicating pregnancy, second trimester; F17.200 Nicotine dependence, unspecified, uncomplicated; R10.2 Pelvic and perineal pain; B37.89 Other sites of candidiasis; Z3A.19 19 weeks gestation of pregnancy
CPT/HCPCS: 81001; G0463; 99213

== ENCOUNTER 2023-10-09 19:24 | Outpatient (CLI) | payer OTHER ==
[2023-10-09 21:34] VITALS: BP 107/59; PULSE 96; RESP 16; TEMP 98.5
--- NOTE | 2023-10-10 | P.MSEPDOC ---
Presenting Problems - Arrival Data Date of Arrival on Unit: 10/09/23 Time of Arrival on Unit: 19:24 Mode of Transport: Ambulatory - Complaint OB-Reason for Admission/Chief Complaint: Pain Comment: Pt presents to triage with c/o sharp pains that start in her lower abdomen and shoot down into her vagina and legs. Pt states it gets worse when she is up and moving around and goes away while she is laying down. Pt rates pain 8 out of 10 and started at 1800. Medical History - Information : 4 Para: 2 Term: 2 : 0 Abortions: Spontaneous or Elective: 1 Number of Living Children: 2 - Gestational Age Gestational Age by MARIAN (wks/days): 22 Weeks and 6 Days Review of Systems - Review of Systems Constitutional: No problems Breast: No problems ENT: No problems Cardiovascular: No problems Respiratory: No problems Gastrointestinal: No problems Genitourinary: No problems Musculoskeletal: No problems Neurological: No problems Skin: No problems Vital Signs - Temperature Temperature: 98.5 F Temperature Source: Temporal Artery Scan - Pulse Pulse Oximetery Pulse Rate: 96 Pulse Assessment Method: Pulse Oximetry - Respirations Respiratory Rate: 16 Oxygen Delivery Method: Room Air O2 Sat by Pulse Oximetry: 97 - Blood Pressure Right Arm Blood Pressure: 107/59 Blood Pressure Mean: 75 Blood Pressure Source: Automatic Cuff Physician Notification - Physician Notified Physician Notified Date: 10/09/23 Physician Notified Time: 20:08 Physician: Martha Wilson Order Received: Yes - Notification Comment Comment: At 2007, RN spoke with Dr. Wilson and reported triage pt c/o sharp pains that pt states are shooting down into her vagina and legs. 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 Additionally, reported pt had a yeast infection around 3 weeks ago and was on a 7 day course of cream and pt has an appt with Dr. Lambert on Tuesday. Also reported RN discussed ligament pain with p t. Orders to discharge pt home with instructions to f/u with Dr. Lambert and discuss getting a belly band/support belt, potential work restrictions and educate on stretching/coping mechanisms. Maternal Triage Index - Maternal Triage Index Presenting for scheduled procedure w/no complaint: No - Stat/Priority 1 Stat Priority 1: No - Urgent/Priority 2 Urgent Priority 2: No - Prompt/Priority 3 Prompt Priority 3: No - Non-Urgent/Priority 4 Non-Urgent Priority 4: Yes Criteria Met for Priority 4: Non-urgent symptoms - common discomforts of pre gnancy, ligament pain Disposition - Disposition OB Disposition: Discharge to home, Written follow up instructions reviewed Discharge Date: 10/09/23 Discharge Time: 20:17 I agree with the RN Medical Screening Exam: Yes Case reviewed; plan agreed upon as documented in EMR&OBIX.: Yes Diagnosis: RELATED CONDITIONS, UNSPECIFIED, SECOND TRIMESTER
== END 2023-10-09 20:17 | disposition home or self-care (01) ==
LOC: FBPOP 19:24
PROVIDERS: ATTEND Obstetrics & Gynecology
DX: O26.892 Other specified pregnancy related conditions, second trimester (principal); R10.30 Lower abdominal pain, unspecified; O99.332 Smoking (tobacco) complicating pregnancy, second trimester; F17.200 Nicotine dependence, unspecified, uncomplicated; Z3A.22 22 weeks gestation of pregnancy
CPT/HCPCS: 99213

== ENCOUNTER 2023-12-28 13:50 | Outpatient (CLI) | payer OTHER ==
[2023-12-28 15:32] VITALS: BP 110/55; PULSE 115; RESP 18; TEMP 98.4
--- NOTE | 2023-12-29 08:14 | P.MSEPDOC ---
Presenting Problems - Arrival Data Date of Arrival on Unit: 12/28/23 Time of Arrival on Unit: 13:50 Mode of Transport: Ambulatory - Complaint OB-Reason for Admission/Chief Complaint: Rule Out PROM Comment: Pt reports with c/o PROM at [id number] clear fluid. Medical History - Information : 4 Para: 2 Term: 1 : 1 Abortions: Spontaneous or Elective: 1 Number of Living Children: 2 - Gestational Age Gestational Age by MARIAN (wks/days): 34 Weeks and 2 Days Review of Systems - Review of Systems Constitutional: No problems Breast: No problems ENT: No problems Cardiovascular: No problems Respiratory: No problems Gastrointestinal: No problems Genitourinary: No problems Musculoskeletal: No problems Neurological: No problems Skin: No problems Vital Signs - Temperature Temperature: 98.4 F Temperature Source: Temporal Artery Scan - Pulse Pulse Oximetery Pulse Rate: 115 Pulse Assessment Method: Pulse Oximetry - Respirations Respiratory Rate: 18 Oxygen Delivery Method: Room Air O2 Sat by Pulse Oximetry: 97 - Blood Pressure Right Arm Blood Pressure: 110/55 Blood Pressure Mean: 73 Blood Pressure Source: Automatic Cuff Medical Screen Scoring - Assessment - Baby A Baseline FHR: 130 Heart Rate - NICHD Category: Category I (Normal) NST: Reactive Physician Notification - Physician Notified Physician Notified Date: 12/28/23 Physician Notified Time: 14:28 Physician: Yumiko Lambert Order Received: Yes (Discharge home with follow up instructions with reastive NST.) Maternal Triage Index - Maternal Triage Index Presenting for scheduled procedure w/no complaint: No - Stat/Priority 1 Stat Priority 1: No - Urgent/Priority 2 Urgent Priority 2: No - Prompt/Priority 3 Prompt Priority 3: Yes Criteria Met for Priority 3: C/O possible PROM around 2029-4435 last night. "clear fluid" Disposition - Disposition OB Disposition: Triage, Discharge to home Discharge Date: 12/28/23 Discharge Time: 14:53 I agree with the RN Medical Screening Exam: Yes Case reviewed; plan agreed upon as documented in EMR&OBIX.: Yes Diagnosis: FALSE LABOR BEFORE 37 COMPLETED WEEKS OF GEST, THIRD TRI
== END 2023-12-28 14:53 | disposition home or self-care (01) ==
LOC: FBPOP 13:50
PROVIDERS: ATTEND Obstetrics & Gynecology
DX: O47.03 False labor before 37 completed weeks of gestation, third trimester (principal); O99.333 Smoking (tobacco) complicating pregnancy, third trimester; F17.200 Nicotine dependence, unspecified, uncomplicated; Z3A.34 34 weeks gestation of pregnancy
CPT/HCPCS: 59025; 84112; G0463; 99213

== ENCOUNTER 2024-01-06 09:33 | Outpatient (CLI) | payer OTHER ==
[2024-01-06] MEDS: ACETAMINOPHEN TAB 500 MG TAB PO STA (10:31)
[2024-01-06 11:19] LABS: Appearance,Urine Cloudy (Clear); Bacteria,Urine Few /hpf; Bilirubin,Urine Negative (Negative); Blood,Urine Negative (Negative); Color,Urine Colorless; Glucose,Urine (UA) Negative (Negative); Ketones,Urine Negative (Negative); Leukocyte Esterase,Urine Moderate (Negative); Mucus,Urine Few /hpf; Nitrite,Urine Negative (Negative); PH, Urine 7.5 (5.0-8.0); Protein,Urine Negative (Negative); RBC,Urine 3 /hpf (0-5); Specific Gravity,Urine 1.011 (1.001-1.035); Squamous Epithelial Cell,Urine 14 /hpf (0-4); Urobilinogen,Urine <2.0 mg/dL (<2.0); WBC,Urine 11 /hpf (0-5)
[2024-01-06 12:28] VITALS: BP 115/69; PULSE 87; RESP 16; TEMP 97.1
--- NOTE | 2024-01-21 12:24 | P.MSEPDOC ---
Presenting Problems - Arrival Data Date of Arrival on Unit: 01/06/24 Time of Arrival on Unit: 09:33 Mode of Transport: Wheelchair - Complaint OB-Reason for Admission/Chief Complaint: Pain Comment: 35 3/7 Patient presents with constant back pain that started at 0800 this am when she bent down to put her pants on patient states it hurts when she takes a deep breath. Medical History - Information : 4 Para: 2 Term: 1 : 1 Abortions: Spontaneous or Elective: 1 Number of Living Children: 2 - Gestational Age Gestational Age by MARIAN (wks/days): 35 Weeks and 4 Days - History Complications: Prior Comment: 1st delivery was a vaginal delivery 2nd delivery was a section Review of Systems - Review of Systems Constitutional: No problems Breast: No problems ENT: No problems Cardiovascular: No problems Respiratory: No problems Gastrointestinal: No problems Genitourinary: No problems Musculoskeletal: No problems Neurological: No problems Skin: No problems Vital Signs - Temperature Temperature: 97.1 F Temperature Source: Temporal Artery Scan - Pulse Pulse Oximetery Pulse Rate: 87 Pulse Assessment Method: Pulse Oximetry - Respirations Respiratory Rate: 16 Oxygen Delivery Method: Room Air - Blood Pressure Sitting Blood Pressure: 115/69 Blood Pressure Mean: 84 Blood Pressure Source: Automatic Cuff Medical Screen Scoring - Cervical Exam Membranes: Intact - Uterine Contractions Resting: Soft to palpation - Assessment - Baby A Baseline FHR: 135 Heart Rate - NICHD Category: Category I (Normal) NST: Reactive Physician Notification - Physician Notified Physician Notified Date: 01/06/24 Physician Notified Time: 10:09 Physician: Yumiko Lambert New Order Received: Yes - Notification Comment Comment: Orders given to collect and send UA, give 1000mg of tylenol orally once, patient may drink water. 1157 orders given to discharge home with instructions Maternal Triage Index - Prompt/Priority 3 Prompt Priority 3: Yes Criteria Met for Priority 3: 35 3/7 presents with severe, constant back pain that started around 0800 this am. Patient is crying states pain is a 10/10. Disposition - Disposition OB Disposition: Discharge to home, Written follow up instructions reviewed Discharge Date: 01/06/24 Discharge Time: 12:05 I agree with the RN Medical Screening Exam: Yes Case reviewed; plan agreed upon as documented in EMR&OBIX.: Yes Diagnosis: UNSPECIFIED ABDOMINAL PAIN
== END 2024-01-06 12:05 | disposition home or self-care (01) ==
LOC: FBPOP 09:33
PROVIDERS: ATTEND Obstetrics & Gynecology
DX: O26.893 Other specified pregnancy related conditions, third trimester (principal); R10.9 Unspecified abdominal pain; M54.50 Low back pain, unspecified; O99.333 Smoking (tobacco) complicating pregnancy, third trimester; F17.200 Nicotine dependence, unspecified, uncomplicated; Z3A.35 35 weeks gestation of pregnancy
CPT/HCPCS: 59025; 81001; G0463; 99213

== ENCOUNTER 2024-02-01 01:08 | Inpatient (IN) | payer OTHER ==
[2024-02-01] MEDS: ACETAMINOPHEN TAB 500 MG TAB PO STA (03:07)
[2024-02-01] MEDS ORDERED: TERBUTALINE 1 MG/ML VIAL SQ PRN (03:41)
[2024-02-01] MEDS ORDERED: METHYLERGONOVINE 0.2 MG/ML 1 ML AMP IM PRN (03:41)
[2024-02-01] MEDS ORDERED: CARBOPROST TROMETHAMINE 250 MCG/ML 1 ML AMP IM PRN (03:41)
[2024-02-01] MEDS ORDERED: miSOPROStoL 200 MCG TAB PO PRN (03:41)
[2024-02-01] MEDS ORDERED: TRANEXAMIC 1,000 MG/100ML-NACL 1,000 MG in EMPTY BAG 1 BAG IV PRN (03:41)
[2024-02-01] MEDS ORDERED: OXYTOCIN 10 UNIT/ML 1 ML VIAL IM PRN (03:41)
[2024-02-01] MEDS: LACTATED RINGERS 1,000 ML IV SCH (03:45)
[2024-02-01] MEDS: NALBUPHINE 10 MG/ML (10 ML MDV) IV PRN (03:55)
[2024-02-01 04:41] LABS: Basophils % (A) 0 %; Eosinophils # (A) 0.1 k/uL (0-0.7); Eosinophils % (A) 1 %; HCT 36.9 % (34.0-46.0); HGB 13.1 gm/dL (11.4-16.0); Lymphocytes # (A) 1.7 k/uL (1.0-4.8); Lymphocytes % (A) 11 %; MCH 32.5 pg (25.0-35.0); MCHC 35.5 g/dL (31.0-37.0); MCV 91.7 fL (80.0-100.0); Mean Platelet Volume 8.9; Monocytes # (A) 0.7 k/uL (0-1.0); Monocytes % (A) 5 %; Neutrophils # (A) 13.3 k/uL (1.3-7.7); Neutrophils % (A) 83 %; Platelet Count 210 k/uL (150-450); RBC 4.03 m/uL (3.80-5.40); RDW 13.8 % (11.5-15.5)
[2024-02-01] MEDS: OXYTOCIN 30 UNITS/500 ML NS 30 UNIT in SALINE 1 500ML.BAG IV SCH (05:20)
[2024-02-01] MEDS ORDERED: diphenhydrAMINE 50 MG CAP PO PRN (05:32)
[2024-02-01] MEDS ORDERED: HYDROCORTISONE 2.5% RECTAL CREAM 30 GM TUBE RECTAL PRN (05:32)
[2024-02-01] MEDS ORDERED: ZOLPIDEM 5 MG TAB PO PRN (05:32)
[2024-02-01] MEDS ORDERED: LANOLIN CREAM 1 GM TUBE TOPICAL PRN (05:32)
[2024-02-01] MEDS ORDERED: SIMETHICONE 80 MG CHEWABLE PO PRN (05:32)
[2024-02-01] MEDS ORDERED: diphenhydrAMINE 25 MG CAP PO PRN (05:32)
[2024-02-01] MEDS ORDERED: diphenhydrAMINE 50 MG/ML 1 ML VIAL IVP PRN ×2 (05:32)
[2024-02-01] MEDS ORDERED: BENZOCAINE/MENTHOL SPRAY 1 GM/SPRAY AEROSOL TOPICAL PRN (05:32)
--- NOTE | 2024-02-01 05:40 | P.HPOB ---
History of Present Illness H&P Date: 02/01/24 Chief Complaint: IUP at 39-2/7 weeks, active labor, history of x 1 23-year-old 4 para 1-1-1-2 at 39-2/7 weeks presents to labor and delivery with complaints of regular painful contractions. Patient has been receiving routine care. Patient does have a prior history of a section for abruption at 34 weeks with her last . Patient desired trial of labor after . Patient has successful normal spontaneous vaginal delivery with her first . Patient states contractions started about 3 hours prior to arrival about every 7 to 10 minutes. Patient denied loss of fluid. Patient does note good movement. On blood work this patient is a blood type of O+, rubella status immune, hepatitis B surface engine negative, HIV negative, group beta strep culture was negative. Review of Systems Constitutional: Denies chills, Denies fatigue, Denies fever Ears, nose, mouth and throat: Denies headache Cardiovascular: Denies leg edema Respiratory: Denies dyspnea Gastrointestinal: Denies constipation, Denies diarrhea, Denies nausea, Denies vomiting Genitourinary: Denies Past Medical History Past Medical History: Asthma Additional Past Medical History / Comment(s): season allergies History of Any Multi-Drug Resistant Organisms: None Reported Past Surgical History: Section Additional Past Surgical History / Comment(s): tongue clipped Past Anesthesia/Blood Transfusion Reactions: No Reported Reaction Smoking Status: Vaper - Past Family History Mother Family Medical History: No Reported History Medications and Allergies Allergies Allergy/AdvReac Type Severity Reaction Status Date / Time No Known Allergies Allergy Verified 02/01/24 01:11 Exam Osteopathic Statement: *. No significant issues noted on an osteopathic structural exam other than those noted in the History and Physical/Consult. Intake and Output 01/31/24 01/31/24 02/01/24 14:59 22:59 06:59 Other: Weight 63.957 kg Targeted physical exam is performed this date General is a well-nourished well- developed female in active labor, breathing is nonlabored, abdomen is g ravid, on cervical exam she is completely dilated and +2 station. heart tones noted be category 1 nathaniel every 3 minutes. Results Result Diagrams: 02/01/24 03:50 Abnormal Lab Results - Last 24 Hours (Table) 02/01/24 Range/Units 03:50 WBC 16.0 H (3.8-10.6) k/uL Neutrophils # 13.3 H (1.3-7.7) k/uL Assessment and Plan (1) 39 weeks gestation of Current Visit: Yes Status: Acute Code(s): Z3A.39 - 39 WEEKS GESTATION OF SNOMED Code(s): 36332369 (2) Active labor Current Visit: Yes Status: Acute Code(s): PZS3370 - SNOMED Code(s): 724270500 (3) Desires (vaginal after ) trial Current Visit: Yes Status: Acute Code(s): O34.219 - MATERNAL CARE FOR UNSP TYPE SCAR FROM PREVIOUS DEL SNOMED Code(s): 667556648 Plan: 23-year-old 4 para 1-1-1-2 at 39-2/7 weeks presents in active labor. Patient noted to be completely dilated, anticipate spontaneous vaginal delivery.
--- NOTE | 2024-02-01 05:44 | P.PROBDLV ---
Vaginal Delivery Note - . Vaginal Delivery Note: Findings: viable female 6 pounds 5 ounces delivered at 515 23-year-old 4 para 1112 at 39-2/7 weeks presented to labor and delivery in active labor. Patient was initially admitted for observation. Patient had several hours of no cervical change but was noted to be uncomfortable with contractions. Patient became more uncomfortable and made quick progress to 8 cm, patient had spontaneous rupture of membranes clear fluid was appreciated. Patient progressed to complete began pushing and had a normal spontaneous vaginal delivery of a viable female loose body cord noted delivered through. After 2-minute delay umbilical cord was doubly clamped and cut cord blood was then taken. Placenta was delivered spontaneously intact with a three- vessel cord being noted. Spontaneous cry was noted at . On inspection the patient's vaginal vault a first-degree vaginal laceration was appreciated. This laceration was injected with lidocaine and repaired in the usual fashion with 3- 0 Rapide. Uterus was noted to be firm below the umbilicus. Estimated blood loss 100 cc All counts were to be correct x 2 at the end of the delivery.
[2024-02-01] MEDS: LIDOCAINE 0.5% (PF) 5 MG/ML (50 ML SDV) SQ PRN (06:26)
[2024-02-01] MEDS: IBUPROFEN 600 MG TAB PO SCH (06:28)
[2024-02-01 07:48] VITALS: RESP 16
[2024-02-01] MEDS: SENNOSIDES-DOCUSATE SODIUM 1 EACH TAB PO SCH (10:06)
[2024-02-01] MEDS: ACETAMINOPHEN TAB 325 MG TAB PO PRN (11:36)
[2024-02-02 08:25] LABS: Basophils % (A) 0 %; Eosinophils # (A) 0.2 k/uL (0-0.7); Eosinophils % (A) 2 %; HCT 28.3 % (34.0-46.0); Lymphocytes # (A) 2.1 k/uL (1.0-4.8); Lymphocytes % (A) 20 %; MCH 32.8 pg (25.0-35.0); MCHC 33.6 g/dL (31.0-37.0); Mean Platelet Volume 8.2; Monocytes # (A) 0.5 k/uL (0-1.0); Monocytes % (A) 5 %; Neutrophils # (A) 7.7 k/uL (1.3-7.7); Neutrophils % (A) 72 %; Platelet Count 209 k/uL (150-450); RDW 13.7 % (11.5-15.5); WBC 10.7 k/uL (3.8-10.6)
[2024-02-02 08:26] LABS: HGB 9.5 gm/dL (11.4-16.0)
[2024-02-02 08:27] LABS: MCV 97.6 fL (80.0-100.0)
--- NOTE | 2024-02-02 08:32 | P.DS ---
Providers Date of admission: 02/01/24 04:40 Expected date of discharge: 02/02/24 Attending physician: Yumiko Lambert Primary care physician: Stated None - Discharge Diagnosis(es) (1) 39 weeks gestation of Current Visit: Yes Status: Acute (2) Active labor Current Visit: Yes Status: Acute (3) Desires (vaginal after ) trial Current Visit: Yes Status: Acute (4) Vaginal after Current Visit: Yes Status: Acute Hospital Course: 23-year-old 4 now para 2-1-1-3 that presented to labor and delivery at 39-2/7 weeks in active labor. Patient has a history of a section at 34 weeks secondary to placental abruption. Patient desired trial of labor after . Patient was admitted becoming more uncomfortable with contractions and quickly made progress to 8 cm. Spontaneous rupture of membranes revealed clear fluid. Patient progressed to complete began pushing and had a normal spontaneous vaginal delivery of a viable female infant at 515, weight of 6 pounds 5 ounces. Patient did sustain a first-degree vaginal laceration during delivery. This was repaired in the usual fashion with 3-0 Rapide. Patient's course has been uneventful. In this day #1 she is ambulating and voiding without difficulty. She is tolerating a regular diet without nausea or vomiting. She states her lochia is minimal. She is breast- feeding. She would like discharge home later today. Patient Condition at Discharge: Good Plan - Discharge Summary Follow up Appointment(s)/Referral(s): Yumiko Lambert DO [Doctor of Osteopathic Medicine] - 03/14/24 1:15 pm Patient Instructions/Handouts: Vaginal Delivery (DC), Vaginal Delivery (GEN) Activity/Diet/Wound Care/Special Instructions: No intercourse, tampons or tub baths. Call with any fever, shakes or chills, with any pain not alleviated by over the counter meds, or with any questions or concerns. [id number] ibuprofen 600 mg or 3 tablets every 6 hours as needed for pain. Discharge Disposition: HOME SELF-CARE
[2024-02-02 08:39] VITALS: BP 100/66; PULSE 71; TEMP 97.8
== END 2024-02-02 12:05 | disposition home or self-care (01) | DRG 560 ==
LOC: FBPOP 01:08 → 4FBP 03:30 → OBSVTOIN 04:40
PROVIDERS: ADMIT Obstetrics & Gynecology Obstetrics; ATTEND Obstetrics & Gynecology
PROC: 10E0XZZ Delivery of Products of Conception, External Approach (ICD-10-PCS; principal; 2024-02-01)
PROC: 0HQ9XZZ Repair Perineum Skin, External Approach (ICD-10-PCS; principal; 2024-02-01)
DX: O34.219 Maternal care for unspecified type scar from previous cesarean delivery (principal); O99.334 Smoking (tobacco) complicating childbirth; F17.290 Nicotine dependence, other tobacco product, uncomplicated; O99.52 Diseases of the respiratory system complicating childbirth; J45.909 Unspecified asthma, uncomplicated; O69.89X0 Labor and delivery complicated by other cord complications, not applicable or unspecified; O70.0 First degree perineal laceration during delivery; Z28.310 Unvaccinated for COVID-19; Z3A.39 39 weeks gestation of pregnancy; Z37.0 Single live birth
CPT/HCPCS: 59025; 85025; 86850; 86900; 86901; 99213

== ENCOUNTER 2024-05-16 12:56 | Emergency (ER) | payer OTHER ==
[2024-05-16 13:09] VITALS: RESP 16
[2024-05-16 13:58] LABS: Appearance,Urine Clear (Clear); Bilirubin,Urine Negative (Negative); Blood,Urine Negative (Negative); Color,Urine Colorless; Glucose,Urine (UA) Negative (Negative); Ketones,Urine Negative (Negative); Leukocyte Esterase,Urine Negative (Negative); Nitrite,Urine Negative (Negative); Protein,Urine Negative (Negative); Specific Gravity,Urine 1.006 (1.001-1.035); Urobilinogen,Urine <2.0 mg/dL (<2.0)
[2024-05-16] MEDS: SODIUM CHLORIDE 0.9% 1,000 ML IV STA (14:21)
--- NOTE | 2024-05-16 14:35 | CT ---
EXAMINATION TYPE: CT abdomen pelvis wo con DATE OF EXAM: 05/16/2024 COMPARISON: March 15, 2017 HISTORY: Possible first-time nephrolithiasis Examination of the solid and hollow viscera is limited given the lack of contrast. FINDINGS: LUNG BASES: No evidence for nodule. No evidence for infiltrate. LIVER/GB: The gallbladder is unremarkable. No space-occupying hepatic lesion. PANCREAS: No pancreatic mass identified. No inflammatory process seen. SPLEEN: No evidence for splenomegaly. No intrasplenic lesions seen. ADRENALS: No adrenal nodules identified. No evidence for thickening. KIDNEYS: No evidence for renal mass. No nephrolithiasis. No hydronephrosis. BOWEL: Appendix has a normal appearance. No evidence of bowel obstruction. No inflammatory process. Lymph nodes: No evidence for adenopathy greater than 1 cm. Abdominal aorta: Atheromatous changes seen. No evidence for aneurysm. Genital organs: No significant abnormality. Other: No significant abnormality. IMPRESSION: NO EVIDENCE FOR NEPHROLITHIASIS. NO ACUTE PROCESS IDENTIFIED. [facility], , 05/16/2024 2:32 PM
--- NOTE | 2024-05-16 15:18 | ED ---
Abdominal Pain HPI - General Source: patient, RN notes reviewed Mode of arrival: ambulatory Limitations: no limitations - History of Present Illness MD Complaint: abdominal pain <Kelvin Alexander - Last Filed: 05/16/24 16:12> <Shweta Rocha - Last Filed: 05/17/24 01:15> - General Chief Complaint: Abdominal Pain Stated Complaint: Abd pain - History of Present Illness Initial Comments: This is a 23-year-old female presenting for sharp left-sided abdominal pain starting earlier today. Patient endorsed significant constant pain on the left side of her abdomen and associated nausea. Patient endorses going to urgent care where blood was discovered in her urine she was advised of possible kidney stone. Patient endorses receiving sublingual Zofran and IM Toradol at that time before coming to ER for further care. Patient states current pain is 2 out of 10 and nausea has resolved following treatment at urgent care. Patient denies diarrhea, constipation, other urinary symptoms, vaginal bleeding. (Kelvin Alexander) - Related Data Allergies Allergy/AdvReac Type Severity Reaction Status Date / Time No Known Allergies Allergy Verified 05/16/24 13:09 Review of Systems ROS Other: All systems not noted in ROS Statement are negative. <Kelvin Alexander - Last Filed: 05/16/24 16:12> ROS Other: All systems not noted in ROS Statement are negative. <Shweta Rocha - Last Filed: 05/17/24 01:15> ROS Statement: Those systems with pertinent positive or pertinent negative responses have been documented in the HPI. Past Medical History Past Medical History: Asthma Additional Past Medical History / Comment(s): season allergies History of Any Multi-Drug Resistant Organisms: None Reported Past Surgical History: Section Additional Past Surgical History / Comment(s): tongue clipped Past Anesthesia/Blood Transfusion Reactions: No Reported Reaction Past Psychological History: ADD/ADHD, Anxiety, Depression Smoking Status: Vaper - Past Family History Mother Family Medical History: No Reported History <Kelvin Alexander - Last Filed: 05/16/24 16:12> General Exam Limitations: no limitations General appearance: alert, in no apparent distress Head exam: Present: atraumatic, normocephalic, normal inspection Eye exam: Present: normal appearance, PERRL, EOMI. Absent: scleral icterus, conjunctival injection, periorbital swelling ENT exam: Present: normal exam, mucous membranes moist Neck exam: Present: normal inspection. Absent: tenderness, meningismus, lymphadenopathy Respiratory exam: Present: normal lung sounds bilaterally. Absent: respiratory distress, wheezes, rales, rhonchi, stridor Cardiovascular Exam: Present: regular rate, normal rhythm, normal heart sounds. Absent: systolic murmur, diastolic murmur, rubs, gallop, clicks GI/Abdominal exam: Present: soft, normal bowel sounds. Absent: distended, tenderness, guarding, rebound, rigid Extremities exam: Present: normal inspection, full ROM, normal capillary refill. Absent: tenderness, pedal edema, joint swelling, calf tenderness Back exam: Present: normal inspection Neurological exam: Present: alert, oriented X3, CN II-XII intact Psychiatric exam: Present: normal affect, normal mood Skin exam: Present: warm, dry, intact, normal color. Absent: rash <Kelvin Alexander - Last Filed: 05/16/24 16:12> Course Vital Signs 05/16/24 05/16/24 13:06 15:38 Temperature 98.1 F 98.2 F Pulse Rate 70 89 Respiratory 16 16 Rate Blood Pressure 112/70 137/82 O2 Sat by Pulse 100 99 Oximetry Medical Decision Making <Kelvin Alexander - Last Filed: 05/16/24 16:12> <Shweta Rocha - Last Filed: 05/17/24 01:15> - Medical Decision Making Was pt. sent in by a medical professional or institution (Dr. PA, STRATEGIC PLANNING CONSULTANT, urgent care, hospital, or alf...) When possible be specific @ -No Did you speak to anyone other than the patient for history (EMS, parent, family, police, friend...)? What history was obtained from this source @ -No Did you review nursing and triage notes (agree or disagree)? Why? @ -I reviewed and agree with nursing and triage notes Were old charts reviewed (outside hosp., previous admission, EMS record, old EKG, old radiological studies, urgent care reports/EKG's, alf records)? Report findings @ -No old charts were reviewed Differential Diagnosis (chest pain, altered mental status, abdominal pain women, abdominal pain men, vaginal bleeding, weakness, fever, dyspnea, syncope, headache, dizziness, GI bleed, back pain, seizure, CVA, palpatations, mental health, musculoskeletal)? @ -Differential Abdominal Pain Women: Appendicitis, Cholecystitis, diverticulosis, ischemic bowel, pancreatitis, hepatitis, UTI, gastroenteritis, AAA, incarcerated hernia, bowel obstruction, constipation, inflammatory bowel, hepatitis, peptic ulcer disease, splenic infarction, perforated viscus, vulvitis, ovarian torsion, PID, kidney stone, placenta abruption, this is not meant to be an all-inclusive list EKG interpreted by me (3pts min.). @ -None done X-rays interpreted by me (1pt min.). @ -None done CT interpreted by me (1pt min.). @ -Abdominal CT revealed no nephrolithiasis or other abnormal/concerning findings. U/S interpreted by me (1pt. min.). @ -None done What testing was considered but not performed or refused? (CT, X-rays, U/S, labs)? Why? @ -None What meds were considered but not given or refused? Why? @ -None Did you discuss the management of the patient with other professionals (professionals i.e. , PA, STRATEGIC PLANNING CONSULTANT, lab, RT, psych nurse, social science instructor, 911 emergency services dispatcher, teacher, animal park code enforcement officer, onsite case manager)? Give summary @ -No Was smoking cessation discussed for >3mins.? @ -No Was critical care preformed (if so, how long)? @ -No Were there social determinants of health that impacted care today? How? (Homelessness, low income, unemployed, alcoholism, drug addiction, transportation, low edu. Level, literacy, decrease access to med. care, custodial, rehab)? @ -No Was there de-escalation of care discussed even if they declined (Discuss DNR or withdrawal of care, Hospice)? DNR status @ -No What co-morbidities impacted this encounter? (DM, HTN, Smoking, COPD, CAD, Cancer, CVA, ARF, Chemo, Hep., AIDS, mental health diagnosis, sleep apnea, morbid obesity)? @ -None Was patient admitted / discharged? Hospital course, mention meds given and route, prescriptions, significant lab abnormalities, going to OR and other pertinent info. @ -Discharge. Patient advised of UA and CT negative findings. Advised to return to ER if pain should return. Undiagnosed new problem with uncertain prognosis? @ -No Drug Therapy requiring intensive monitoring for toxicity (Heparin, Nitro, Insulin, Cardizem)? @ -No Were any procedures done? @ -No Diagnosis/symptom? @ -Default Acute, or Chronic, or Acute on Chronic? @ -Acute Uncomplicated (without systemic symptoms) or Complicated (systemic symptoms)? @ -Uncomplicated Side effects of treatment? @ -No Exacerbation, Progression, or Severe Exacerbation? @ -No Poses a threat to life or bodily function? How? (Chest pain, [place], [place], pneumonia, PE, COPD, DKA, ARF, appy, cholecystitis, CVA, Diverticulitis, Homicidal, Suicidal, threat to staff... and all critical care pts) @ -No (Kelvin Alexander) Patient was presented to myself by ERIK after completion of urinalysis and imaging. I went to bedside to assess patient and confirm history presented to myself by ERIK. Patient with left-sided sharp abdominal pain intermittently since last week. Has now improved. Abdominal exam shows minimal tenderness placed in left lower quadrant. Patient well appearing and in NAD. I discussed with the patient additional concern that this could be secondary to ovarian pathology like ovarian torsion. Patient states that her pain has improved and she would like to be discharged at this point. I discussed with her the importance of monitoring for return of symptoms, worsening symptoms or failure symptoms to resolve and should she experiencing symptoms or any further concerns for her wellbeing she is to return to the ER immediately. Patient was agreeable plan of care. (Shweta Rocha) - Lab Data Lab Results 05/16/24 05/16/24 Range/Units 13:43 13:43 Urine Color Colorless Urine Appearance Clear (Clear) Urine pH 6.0 (5.0-8.0) Ur Specific [place] 1.006 (1.001-1.035) Urine Protein Negative (Negative) Urine Glucose (UA) Negative (Negative) Urine Ketones Negative (Negative) Urine Blood Negative (Negative) Urine Nitrite Negative (Negative) Urine Bilirubin Negative (Negative) Urine Urobilinogen <2.0 (<2.0) mg/dL Ur Leukocyte Esterase Negative (Negative) Urine HCG, Qual Not Detected (Not Detectd) Disposition Is patient prescribed a controlled substance at d/c from ED?: No Time of Disposition: 15:18 <Kelvin Alexander - Last Filed: 05/16/24 16:12> <Shweta Rocha - Last Filed: 05/17/24 01:15> Clinical Impression: Nephrolithiasis Disposition: HOME SELF-CARE Condition: Good Referrals: Hari Mclain MD [Primary Care Provider] - 1-2 days
[2024-05-16 15:43] VITALS: BP 137/82; PULSE 89; TEMP 98.2
== END 2024-05-16 15:28 | disposition home or self-care (01) ==
LOC: EC 12:56
CPT/HCPCS: 74176; 81003; 81025; 96360; 99284